=== PATIENT | female | born 1980 | race Two or more races ===

== ENCOUNTER 2017-06-19 18:47 | Emergency (ER) | payer MEDICAID ==
[2017-06-19] MEDS ORDERED: PENICILLIN V POTASSIUM 500 MG TABLET PO ONE (20:03)
[2017-06-19] MEDS ORDERED: BENZONATATE 100 MG CAPSULE PO ONE (20:04)
[2017-06-19] MEDS ORDERED: ACETAMINOPHEN 325 MG TABLET PO ONE (20:04)
[2017-06-19] MEDS ORDERED: IBUPROFEN 600 MG TABLET PO ONE (20:04)
--- NOTE | 2017-06-19 20:07 | ER Document Report ---
HPI - HPI Patient complains to provider of: lower left 1st molar Onset: Yesterday Onset/Duration: Persistent Quality of pain: Throbbing Pain Level: 4 Context: 36 yo female c/o increased pain lower left 1st molar which is decayed to the pulp, pt states it is more swollen after she ripped a piece of skin off the other day. Associated Symptoms: None Exacerbated by: Denies Relieved by: Denies Similar symptoms previously: No Recently seen / treated by doctor: No - ROS ROS below otherwise negative: Yes Systems Reviewed and Negative: Yes All other systems reviewed and negative - DERM Skin Color: Normal Past Medical History - General Information source: Patient - Social History Smoking Status: Current Every Day Smoker Frequency of alcohol use: None Drug Abuse: None Lives with: Family Family History: Reviewed & Not Pertinent Patient has suicidal ideation: No Patient has homicidal ideation: No - Medical History Medical History: Negative Renal/ Medical History: Denies: Hx Peritoneal Dialysis Surgical Hx: Negative Vertical Provider Document - CONSTITUTIONAL Agree With Documented VS: Yes Exam Limitations: No Limitations General Appearance: No Apparent Distress - INFECTION CONTROL TRAVEL OUTSIDE OF THE [place] IN LAST 30 DAYS: No - HEENT Notes: decayed 1st molar lower left with pointed small abscess that is tender, not draining - NECK Neck: Supple. negative: Lymphadenopathy-Left, Lymphadenopathy-Right - RESPIRATORY Respiratory: Breath Sounds Normal, No Respiratory Distress O2 Sat by Pulse Oximetry: 99 - CARDIOVASCULAR Cardiovascular: Regular Rate, Regular Rhythm - NEURO Level of Consciousness: Awake, Alert Course - Vital Signs Vital signs: Temp Pulse Resp BP Pulse Ox 98.6 F 68 20 164/103 H 99 06/19/17 19:07 06/19/17 19:07 06/19/17 19:07 06/19/17 19:07 06/19/17 19:07 Discharge - Discharge Clinical Impression: Dental abscess Condition: Good Disposition: HOME, SELF-CARE Instructions: Acetaminophen, [facility], Dentist, Ibuprofen ( General) ([facility]), Penicillin V K ([facility]), Toothache ([facility]) Additional Instructions: warm compress see the dentist to er if increased swelling pain fever Please complete the patient satisfaction survey if you get one, and return it.. If you do not receive a survey, then you can go to the [facility] website, [email or web address] and place your comments about your very good care. Thank you very much. It was a pleasure being your medical provider today. Prescriptions: Ibuprofen [Motrin 600 mg Tablet] 600 mg PO Q8HP PRN #30 tablet PRN Reason: Penicillin V Potassium [Penicillin Vk 500 mg Tablet] 500 mg PO QID #40 tablet Forms: Return to Work
[2017-06-19 20:31] VITALS: BP 160/90
== END 2017-06-19 20:47 | disposition home or self-care (01) ==
LOC: ER 18:47
DX: K04.7 Periapical abscess without sinus (principal); F17.200 Nicotine dependence, unspecified, uncomplicated
CPT/HCPCS: 99282; J3490 ×4

== ENCOUNTER 2017-06-30 22:24 | Emergency (ER) | payer MEDICAID ==
[2017-06-30] MEDS ORDERED: CLINDAMYCIN HCL 150 MG CAPSULE PO ONE (23:41)
[2017-06-30] MEDS ORDERED: OXYCODONE-ACETAMINOPHEN 5-325 MG TABLET PO ONE (23:41)
[2017-06-30] MEDS ORDERED: HYDROCODONE/ACETAMINOPHEN 5-325 MG 6 TAB/DSPK PO PRN (23:41)
[2017-06-30] MEDS ORDERED: ONDANSETRON 4 MG TAB.RAPDIS PO ONE (23:41)
--- NOTE | 2017-06-30 23:48 | ER Document Report ---
HPI - HPI Patient complains to provider of: Dental pain Pain Level: 5 Context: Patient is a 36-year-old female comes emergency department for chief complaint of dental pain, she states pain has been worsening over the past 2 days, she states she minimally improved after being placed on penicillin about a week ago , she states she has had same trouble in the past and has had limited results with penicillin. She denies fever, swelling of the neck, difficulty swallowing. She tried to get into the dentist but they would not take her because she will soon have insurance per patient. Past Medical History - General Information source: Patient - Social History Smoking Status: Never Smoker Drug Abuse: None Lives with: Family Family History: Reviewed & Not Pertinent - Medical History Medical History: Negative Renal/ Medical History: Denies: Hx Peritoneal Dialysis Surgical Hx: Negative - Immunizations Immunizations up to date: Yes Hx Diphtheria, Pertussis, Tetanus Vaccination: Yes Vertical Provider Document - CONSTITUTIONAL General Appearance: WD/WN, Mild Distress - INFECTION CONTROL TRAVEL OUTSIDE OF THE [place] IN LAST 30 DAYS: No - HEENT HEENT: Atraumatic, Normocephalic Mouth Diagram: 1 - Dental caries with mild surrounding gingival inflammation, no drainable abscess noted 2 - Dental caries with mild surrounding gingival inflammation, no drainable abscess noted - NECK Neck: Normal Inspection - RESPIRATORY Respiratory: Breath Sounds Normal, No Respiratory Distress O2 Sat by Pulse Oximetry: 99 - CARDIOVASCULAR Cardiovascular: Regular Rate, Regular Rhythm - GI/ABDOMEN Gastrointestinal: Abdomen Soft, Abdomen Non-Tender - MUSCULOSKELETAL/EXTREMETIES Musculoskeletal/Extremeties: MAEW, FROM, Non-Tender - NEURO Level of Consciousness: Awake, Alert, Appropriate - DERM Integumentary: Warm, Dry, No Rash Course - Re-evaluation Re-evalutation: Patient appears to have dental infection in 2 different locations, one on each side of the mouth. No dental abscesses noted. No swelling of the neck, submandibular tissues, no significant swelling of the face. Patient will be treated with clindamycin instead of penicillin, provided with symptom relief here, patient states that she will be following up soon with the dentist. Discussed return precautions. Patient states understanding and agreement. - Vital Signs Vital signs: Temp Pulse Resp BP Pulse Ox 98.1 F 65 16 172/82 H 99 06/30/17 23:00 06/30/17 23:00 06/30/17 23:00 06/30/17 23:00 06/30/17 23:00 Discharge - Discharge Clinical Impression: Pain, dental Condition: Stable Disposition: HOME, SELF-CARE Additional Instructions: Take the clindamycin as prescribed instead of the penicillin. Follow-up with the dentist for this will continue to occur. Continue ibuprofen, take the provided medication if needed. Return to the emergency department if you worsen including increased swelling, difficulty swallowing, swelling of the neck, or any other concerning symptoms. Prescriptions: Clindamycin HCl [Cleocin 150 mg Capsule] 150 mg PO Q6 #56 capsule
[2017-07-01 00:46] VITALS: BP 175/95
== END 2017-07-01 00:46 | disposition home or self-care (01) ==
LOC: ER 22:24
DX: K08.89 Other specified disorders of teeth and supporting structures (principal)
CPT/HCPCS: 99282; J3490; S0119

== ENCOUNTER 2017-08-10 20:28 | Emergency (ER) | payer MEDICAID ==
[2017-08-10 20:40] VITALS: BP 159/100
[2017-08-10] MEDS ORDERED: ACETAMINOPHEN 325 MG TABLET PO ONE (21:24)
--- NOTE | 2017-08-10 21:25 | ER Document Report ---
HPI - HPI Patient complains to provider of: laceration Pain Level: 4 Context: Patient is a 37-year-old female presents emergency department with a laceration on the palmar surface of her left hand. Patient states that she was trying to cut something when the knife slipped onto her palm. Tetanus is up-to-date. Denies any numbness or tingling of her hand full range of motion in all her digits admits to pain and did not take anything prior to arrival. Otherwise healthy female Past Medical History - Social History Smoking Status: Unknown if Ever Smoked Family History: Reviewed & Not Pertinent Patient has suicidal ideation: No Patient has homicidal ideation: No Renal/ Medical History: Denies: Hx Peritoneal Dialysis - Immunizations Immunizations up to date: Yes Hx Diphtheria, Pertussis, Tetanus Vaccination: Yes Vertical Provider Document - CONSTITUTIONAL Agree With Documented VS: Yes Notes: PHYSICAL EXAM GENERAL: Alert, interacts well. HEAD: Normocephalic, atraumatic. EXTREMITIES: Moves all 4 extremities spontaneously. No edema, radial pulses 2/ 4 bilaterally. No cyanosis. Capillary refill less than 2 seconds in all upper extremity digits NEUROLOGICAL: Alert and oriented x4. Normal speech. PSYCH: Normal affect, normal mood. SKIN: Warm, dry, normal turgor. 1 cm laceration on the palmar surface of the left hand, wound edges well approximated with minimal subcutaneous fat involvement. - INFECTION CONTROL TRAVEL OUTSIDE OF THE [place] IN LAST 30 DAYS: No - RESPIRATORY O2 Sat by Pulse Oximetry: 100 Course - Re-evaluation Re-evalutation: 08/10/17 21:30 Patient is a 37-year-old female who presents emergency department for laceration on her hand. Wound is irrigated with Betadine and saline. Given the location and wound edges already well approximated was dressed with Steri- Strips and a dry sterile dressing. Patient educated on wound care and to follow -up with primary care. Patient is stable for discharge home. - Vital Signs Vital signs: Temp Pulse Resp BP Pulse Ox 98.1 F 70 18 159/100 H 100 08/10/17 20:38 08/10/17 20:38 08/10/17 20:38 08/10/17 20:38 08/10/17 20:38 Discharge - Discharge Clinical Impression: Laceration Condition: Good Disposition: HOME, SELF-CARE Additional Instructions: NON-SUTURED LACERATION: Your laceration did not require suturing. Some lacerations cannot be sutured because of increased infection risk, while others simply don't need stitches because they are shallow or very short. Your injury should be protected while it heals. Usually complete healing takes 10 to 14 days. Keep the dressing clean and dry, and change it every day. If you notice increasing pain, redness, swelling, drainage, or tender lumps in the armpit or groin above the injury, infection may be present. You should call the doctor at once. SOAP CLEANSING: Gently wash the wound daily using a mild soap (like Ivory, Phisoderm, Neutrogena). Use warm water, rubbing gently until all debris, ooze, and crusting have been washed from the wound. Allow to dry briefly (about 10 minutes) after cleaning. Repeat this cleansing at least three times a day for the first two days and then once or twice a day. FOLLOW-UP CARE: If you have been referred to another physician for follow-up care, call that physicians office for an appointment as you were instructed. If you experience a significant change in your laceration, or if you are concerned there may be an infection (swelling, redness, drainage, increasing tenderness, red streaks, tender lumps in the armpit or groin above the laceration, or fever) , return to the Emergency Department immediately re-evaluation.
== END 2017-08-10 21:34 | disposition home or self-care (01) ==
LOC: ER 20:28
DX: S61.412A Laceration without foreign body of left hand, initial encounter (principal); W26.0XXA Contact with knife, initial encounter; Y93.G1 Activity, food preparation and clean up
CPT/HCPCS: 99282; 12001; J3490

== ENCOUNTER 2017-12-21 11:52 | Emergency (ER) | payer MEDICAID ==
[2017-12-21 12:06] VITALS: BP 113/57
[2017-12-21 13:29] LABS: APPEARANCE,URINE CLOUDY; BILIRUBIN,URINE NEGATIVE (NEGATIVE); COLOR,URINE AMBER; GLUCOSE, URINE NEGATIVE (NEGATIVE); KETONES,URINE NEGATIVE (NEGATIVE); LEUKOCYTE ESTERASE,URINE SMALL (NEGATIVE); NITRITE,URINE POSITIVE (NEGATIVE); PROTEIN,URINE >=500 mg/dL (NEGATIVE); URINE SPECIFIC GRAVITY 1.022
[2017-12-21] MEDS ORDERED: AZITHROMYCIN 250 MG TABLET PO ONE (13:39)
[2017-12-21] MEDS ORDERED: LIDOCAINE 1% INJ-PF (10 MG/ML) 30 ML SDV INJ ONE (13:39)
[2017-12-21] MEDS ORDERED: CEFTRIAXONE INJ 1000 MG VIAL IM ONE (13:39)
[2017-12-21 13:49] LABS: BACTERIA (WET MOUNT) 4+ BACTERIA SEEN; EPITHELIALS (WET MOUNT) 3+ EPITHELIALS SEEN; T.VAGINALIS (WET MOUNT) NO TRICHOMONAS SEEN; WBCS (WET MOUNT) 2+ WBCS SEEN; YEAST (WET MOUNT) NO YEAST SEEN
--- NOTE | 2017-12-21 14:16 | ER Document Report ---
ED Neck/Back Problem - General Chief Complaint: Back Pain Stated Complaint: BACK PAIN Time Seen by Provider: 12/21/17 12:26 Mode of Arrival: Ambulatory Information source: Patient Notes: 37-year-old female presents to ED for complaint of back pain that started yesterday and continue radiating through her right buttocks and down her leg. She denies any injury. She does have frequency and urgency with urination. Last menstrual period was October 10. She denies any signs or symptoms of cauda equina, denies saddle anesthesia, loss of control of bowel bladder, loss of muscle control or sensation to lower extremities. She is able to walk with a even steady gait pupils equal and react to light and answers questions appropriately. She states she is worried she is . TRAVEL OUTSIDE OF THE [place] IN LAST 30 DAYS: No - HPI Patient complains to provider of: Pain, Lower back. No: Injury Onset: Yesterday Where: Home Onset: Gradual Timing: Worse Quality of pain: Pressure, Sharp, Throbbing Severity: Moderate Pain Level: 4 Context: Bending, Lifting, Turning Recent injury: No Associated symptoms: Like prior neck/back pain, Radiation to leg, Lower back pain, Other - With urinary urgency and frequency. denies: Numbness/tingling, Unable to urinate Exacerbated by: Movement of trunk, Sitting position Relieved by: Nothing Similar symptoms previously: Yes Recently seen / treated by doctor: No - Related Data Allergies/Adverse Reactions: No Known Allergies Allergy (Verified 12/21/17 11:57) Past Medical History - General Information source: Patient - Social History Smoking Status: Never Smoker Cigarette use (# per day): No Chew tobacco use (# tins/day): No Smoking Education Provided: No Lives with: Family Family History: Reviewed & Not Pertinent Patient has suicidal ideation: No Patient has homicidal ideation: No - Past Medical History Cardiac Medical History: Reports: Other - 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 Pulmonary Medical History: Reports: Hx Asthma EENT Medical History: Reports: None Neurological Medical History: Reports: Hx Seizures Endocrine Medical History: Reports: None Renal/ Medical History: Reports: None Malignancy Medical History: Reports: None GI Medical History: Reports: None Musculoskeltal Medical History: Reports Hx Arthritis, Reports Hx Musculoskeletal Deformity Skin Medical History: Reports None Psychiatric Medical History: Reports: None Traumatic Medical History: Reports: None Infectious Medical History: Reports: None Past Surgical History: Reports: Hx Open Heart Surgery - Immunizations Immunizations up to date: Yes Hx Diphtheria, Pertussis, Tetanus Vaccination: Yes Review of Systems - Review of Systems Constitutional: No symptoms reported EENT: No symptoms reported Cardiovascular: No symptoms reported Respiratory: No symptoms reported Gastrointestinal: No symptoms reported Genitourinary: Frequency, Urgency Female Genitourinary: Last menstrual period - October 10, 2017 Musculoskeletal: Back pain, Muscle stiffness Skin: No symptoms reported Hematologic/Lymphatic: No symptoms reported Neurological/Psychological: No symptoms reported -: Yes All other systems reviewed and negative Physical Exam - Vital signs Vitals: Temp Pulse Resp BP Pulse Ox 98.5 F 92 16 113/57 L 98 12/21/17 12:05 12/21/17 12:05 12/21/17 12:05 12/21/17 12:05 12/21/17 12:05 Interpretation: Normal - General General appearance: Appears well, Alert - HEENT Head: Normocephalic, Atraumatic Eyes: Normal Pupils: PERRL - Respiratory Respiratory status: No respiratory distress Chest status: Nontender Breath sounds: Normal Chest palpation: Normal - Cardiovascular Rhythm: Regular Heart sounds: Normal auscultation Murmur: No - Abdominal Inspection: Normal Distension: No distension Bowel sounds: Normal Tenderness: Nontender Organomegaly: No organomegaly - Back Back: Normal, Tender - Bilateral lower back, CVA tenderness - Bilateral. No: Deformity/step-off, Vertebra tenderness, Scars, Scoliosis, Wounds - Extremities General upper extremity: Normal inspection, Nontender, Normal color, Normal ROM , Normal temperature General lower extremity: Normal inspection, Nontender, Normal color, Normal ROM , Normal temperature, Normal weight bearing. No: Karen's sign - Neurological Neuro grossly intact: Yes Cognition: Normal Orientation: AAOx4 Spring Coma Scale Eye Opening: Spontaneous Clair Coma Scale Verbal: Oriented Spring Coma Scale Motor: Obeys Commands Spring Coma Scale Total: 15 Speech: Normal Motor strength normal: LUE, RUE, LLE, RLE Sensory: Normal - Psychological Associated symptoms: Normal affect, Normal mood - Skin Skin Temperature: Warm Skin Moisture: Dry Skin Color: Normal Course - Re-evaluation Re-evalutation: 12/21/17 22:49 Patient presented to ED for complaint of low back pain bilaterally with frequency and urgency with urination. She states her last menstrual period was October 10, 2017. Urine was positive for and UTI. Swabs were sent for GC and chlamydia patient was treated with a gram of Rocephin IM as well as azithromycin to cover possible STD. Patient was also discharged home with a prescription for Keflex and instructed to follow-up with [facility] and primary MD. Patient was able to verbalize understanding of instructions and verbalized agreement with treatment plan. - Vital Signs Vital signs: Temp Pulse Resp BP Pulse Ox 98.5 F 92 16 113/57 L 98 12/21/17 12:05 12/21/17 12:05 12/21/17 12:05 12/21/17 12:05 12/21/17 12:05 - Laboratory Laboratory results interpreted by me: 12/21/17 12:39 Urine Protein >=500 H Urine Blood LARGE H Urine Nitrite POSITIVE H Urine Urobilinogen 2.0 H Ur Leukocyte Esterase SMALL H Urine HCG, Qual POSITIVE H Discharge - Discharge Clinical Impression: UTI (urinary tract infection) Qualifiers: Urinary tract infection type: site unspecified Hematuria presence: with hematuria Qualified Code(s): N39.0 - Urinary tract infection, site not specified Low back pain Qualifiers: Chronicity: unspecified Back pain laterality: bilateral Sciatica presence: with sciatica Sciatica laterality: sciatica laterality unspecified Qualified Code(s): M54.40 - Lumbago with sciatica, unspecified side Qualifiers: Weeks of gestation: less than 8 weeks Qualified Code(s): Z3A.01 - Less than 8 weeks gestation of Disposition: HOME, SELF-CARE Instructions: Family Physicians / Practices, [facility] Additional Instructions: URINARY TRACT INFECTION: Your evaluation indicates that you have a urinary tract infection. This is due to germs growing in the bladder. This is a common problem. This infection usually responds quickly to antibiotics. Your antibiotic should be taken exactly as prescribed. Drink plenty of fluids -- three to four quarts a day. Occasionally, a bladder anesthetic will be prescribed to help stop the feeling of urgency until the antibiotic has a chance to clear the infection. This may cause your urine to be dark orange. Certain urine infections require a culture. If the doctor obtained a culture, the results will be back in two days. You should call to see if a change in treatment is needed. A repeat urinalysis after you finish treatment is often recommended. The physician will let you know if further testing is required. Call the doctor if you develop fever, chills, flank pain, inability to urinate, or blood in the urine. CEPHALEXIN: The antibiotic you've been prescribed is a member of the cephalosporin class. This type of antibiotic covers a wide variety of infections, including those of the skin, lungs, and urinary tract. It's useful for staph infections. This antibiotic is slightly similar to the penicillin family. In rare cases , a person who is allergic to penicillin will also be allergic to this medication. If you have had a severe allergic reaction to penicillin, and have not taken this antibiotic since that time, notify your doctor. Antibiotics which cover many germs ("broad spectrum" antibiotics) are more likely to cause diarrhea or "yeast" infections. Women prone to vaginal yeast problems may suffer an attack after taking this antibiotic. In infants, oral thrush (white spots "stuck" on the cheek) or yeast diaper rash may result. See your doctor if these problems occur. Call at once if you develop itching, hives , shortness of breath, or lightheadedness. Rocephin You have been given an injection of an antibiotic called Rocephin ( ceftriaxone). Sometimes the injection must be combined with antibiotic pills. For some infections, such as an uncomplicated ear infection, Rocephin provides all the antibiotic that's needed. The antibiotic will be in your body for about two days. For serious infections, we usually repeat doses of Rocephin daily. Side effects are very unusual following a shot. Women may develop vaginal yeast infections, and babies can get yeast (thrush) in the mouth following the use of antibiotics. Contact your physician if you have symptoms with this medication. Allergy to this antibiotic can result in hives, wheezing, faintness, or itching. If symptoms of allergy occur, call the doctor at once. Azithromycin Azithromycin (Zithromax) is a broad spectrum antibiotic in the same class as erythromycin. It can treat a variety of bacterial infections, but is most frequently used for respiratory infections. Azithromycin is extremely long-lasting. It accumulates in body tissues and continues to kill bacteria for many days. In order to improve absorption, Azithromycin should be taken at least one hour before or two hours after a meal. It does not have the same strong tendency to upset the stomach as erythromycin and is usually very well tolerated. Patients who have had a rash or other true allergic reactions to erythromycin should not take this medication. Call if you develop gastrointestinal distress, severe diarrhea, rash, hives, itching, or shortness of breath. FOLLOW-UP CARE: If you have been referred to a physician for follow-up care, call the physician s office for an appointment as you were instructed or within the next two days. If you experience worsening or a significant change in your symptoms, notify the physician immediately or return to the Emergency Department at any time for re-evaluation. Prescriptions: Cephalexin Monohydrate [Keflex 500 mg Capsule] 500 mg PO Q6H 10 Days capsule Referrals: [facility] [Provider Group] - Follow up as needed
[2017-12-21 15:17] LABS: CHLAM PCR NOT DETECTED (NOT DETECT); GON PCR NOT DETECTED (NOT DETECT)
== END 2017-12-21 14:18 | disposition home or self-care (01) ==
LOC: ER 11:52
DX: O23.41 Unspecified infection of urinary tract in pregnancy, first trimester (principal); O99.89 Other specified diseases and conditions complicating pregnancy, childbirth and the puerperium; M54.40 Lumbago with sciatica, unspecified side; Z3A.01 Less than 8 weeks gestation of pregnancy
CPT/HCPCS: 99283; 87210; 81025; 81001; 87491; 87591; Q0144; J3490; J0696

== ENCOUNTER 2018-05-14 21:47 | Emergency (ER) | payer MEDICAID ==
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
[2018-05-14 22:59] LABS: ABSOLUTE EOSINOPHILS # (AUTO) 0.1 10^3/uL (0.0-0.6); ABSOLUTE LYMPHOCYTES (AUTO) 1.8 10^3/uL (0.5-4.7); ABSOLUTE MONOCYTES (AUTO) 0.9 10^3/uL (0.1-1.4); ABSOLUTE NEUT (AUTO) 9.1 10^3/uL (1.7-8.2); BASOPHILS % (AUTO) 0.2 % (0-2); EOSINOPHILS % (AUTO) 0.7 % (0-6); HEMATOCRIT 28.1 % (36.0-47.0); HEMOGLOBIN 10.1 g/dL (12.0-15.5); MEAN CORPUSCULAR HEMOGLOBIN 32.9 pg (27.0-33.4); MEAN CORPUSCULAR HGB CONC 35.8 g/dL (32.0-36.0); MEAN CORPUSCULAR VOLUME 92 fl (80-97); MONOCYTES % (AUTO) 7.3 % (3-13); PLATELET COUNT 195 10^3/uL (150-450); RED BLOOD COUNT 3.06 10^6/uL (3.72-5.28); SEGMENTED NEUTROPHILS % (AUTO) 76.8 % (42-78); TOTAL CELLS COUNTED % (AUTO) 100 %; WHITE BLOOD COUNT 11.9 10^3/uL (4.0-10.5)
[2018-05-14 23:16] LABS: ALANINE AMINOTRANSFERASE 24 U/L (9-52); ALBUMIN 3.1 g/dL (3.5-5.0); ALKALINE PHOSPHATASE 90 U/L (38-126); ANION GAP 7 (5-19); ASPARTATE AMINO TRANSFERASE 16 U/L (14-36); BILIRUBIN,DIRECT 0.3 mg/dL (0.0-0.4); BILIRUBIN,TOTAL 0.6 mg/dL (0.2-1.3); BLOOD UREA NITROGEN 14 mg/dL (7-20); CALCIUM 8.7 mg/dL (8.4-10.2); CARBON DIOXIDE 22 mmol/L (22-30); CHLORIDE 109 mmol/L (98-107); GLUCOSE 79 mg/dL (75-110); LIPASE 190.5 U/L (23-300); POTASSIUM 3.9 mmol/L (3.6-5.0); SODIUM 138.4 mmol/L (137-145)
[2018-05-15 00:08] VITALS: BP 134/83
== END 2018-05-15 | disposition home or self-care (01) ==
LOC: ER 21:47
DX: O26.893 Other specified pregnancy related conditions, third trimester (principal); R10.31 Right lower quadrant pain; R10.32 Left lower quadrant pain; O36.8130 Decreased fetal movements, third trimester, not applicable or unspecified; O99.513 Diseases of the respiratory system complicating pregnancy, third trimester; J45.909 Unspecified asthma, uncomplicated; O99.333 Smoking (tobacco) complicating pregnancy, third trimester; Z3A.28 28 weeks gestation of pregnancy
CPT/HCPCS: 36415; 80053; 83690; 85025; 99284

== ENCOUNTER 2018-07-07 12:28 | Inpatient (IN) | payer MEDICAID ==
[2018-07-07] MEDS ORDERED: RINGERS SOLUTION,LACTATED 1,000 ML IV PRN ×2 (12:37→13:51)
[2018-07-07] MEDS ORDERED: CEFAZOLIN 2 GM/D5W RTU 2 GM/50 ML RTUPB IV ONE ×2 (12:37→12:40)
[2018-07-07] MEDS ORDERED: CITRIC ACID/SODIUM CITRATE ORAL SOLN 15 ML UDCUP ONE (12:39)
[2018-07-07] MEDS ORDERED: EPHEDRINE SULFATE INJ 50 MG/1 ML AMPULE ONE (12:44)
[2018-07-07] MEDS ORDERED: ONDANSETRON HCL INJ/PF 4 MG/2 ML SDV ONE (12:44)
[2018-07-07] MEDS ORDERED: OXYTOCIN 10 UNIT/ML VIAL ONE (12:45)
[2018-07-07] MEDS ORDERED: FENTANYL CITRATE INJ/PF 100 MCG/2 ML AMPUL ONE ×2 (12:45→14:23)
[2018-07-07] MEDS ORDERED: MIDAZOLAM 2 MG/2 ML INJ ONE (12:45)
[2018-07-07] MEDS ORDERED: BUPIVACAINE HCL/DEX-WATER/PF 15 MG/2 ML AMPULE ONE (12:46)
--- NOTE | 2018-07-07 13:00 | Admission Physical ---
Datetime Report Generated by CPN: 07/07/2018 13:00 CURRENT ADMISSION Chief Complaint: Uterine Contractions Indication for Induction: Not Applicable Admit Impression : Active Labor Admit Plan: Admit to Unit; Initiate Section Protocol Admit Plan- Other: Breech presentation verified by bedside U/S per Dr. 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 [id number] Advised to Stop: Yes Cigarette Comments: 1/2 pack a day MEDICAL HISTORY Pulmonary Disease (Asthma, TB): Yes Neuro/Epilepsy: Yes PHYSICAL EXAM General: Normal HEENT: Deferred Neurologic: Normal Thyroid: Deferred Heart: Normal Lungs: Normal Breast: Deferred Back: Deferred Abdomen: Normal Genitourinary Exam: Normal Extremities: Normal DTRs: Deferred Pelvic Type: Adequate VAGINAL EXAM Dilatation: 5 Effacement: 80 Station: -2 MEMBRANES Membranes: Intact FETUS A EGA: 38.2 FHR- Baseline: 145 Variability: Moderate 6-25bpm Accelerations: 15X15 Decelerations: None Presentation: Breech Admit Comment: Prepped for Stat CS SROM during admit PLANS FOR LABOR AND DELIVERY Labor and Delivery: None Pain Management: Spinal INFORMED CONSENT Assignment: Darren Concepcion MD Signature: with User ID: [email or web address] : with User ID: [email or web address]
[2018-07-07 13:07] LABS: ABSOLUTE BASOPHILS # (AUTO) 0.1 10^3/uL (0.0-0.2); ABSOLUTE LYMPHOCYTES (AUTO) 1.6 10^3/uL (0.5-4.7); ABSOLUTE MONOCYTES (AUTO) 0.8 10^3/uL (0.1-1.4); ABSOLUTE NEUT (AUTO) 8.6 10^3/uL (1.7-8.2); BASOPHILS % (AUTO) 0.5 % (0-2); EOSINOPHILS % (AUTO) 0.1 % (0-6); HEMATOCRIT 32.7 % (36.0-47.0); HEMOGLOBIN 11.5 g/dL (12.0-15.5); LYMPHOCYTES % (AUTO) 14.4 % (13-45); MEAN CORPUSCULAR HEMOGLOBIN 31.8 pg (27.0-33.4); MEAN CORPUSCULAR HGB CONC 35.2 g/dL (32.0-36.0); MEAN CORPUSCULAR VOLUME 90 fl (80-97); MONOCYTES % (AUTO) 7.1 % (3-13); PLATELET COUNT 192 10^3/uL (150-450); RED BLOOD COUNT 3.62 10^6/uL (3.72-5.28); RED CELL DISTRIBUTION WIDTH 14.5 % (11.5-14.0); SEGMENTED NEUTROPHILS % (AUTO) 77.9 % (42-78); TOTAL CELLS COUNTED % (AUTO) 100 %; WHITE BLOOD COUNT 11.1 10^3/uL (4.0-10.5)
[2018-07-07] MEDS ORDERED: MORPHINE SULFATE 10 MG/ML INJ ONE ×2 (13:14→13:24)
[2018-07-07 13:22] LABS: APPEARANCE,URINE SLIGHTLY-CLOUDY; BILIRUBIN,URINE NEGATIVE (NEGATIVE); COLOR,URINE YELLOW; GLUCOSE, URINE NEGATIVE (NEGATIVE); KETONES,URINE 20 mg/dL (NEGATIVE); LEUKOCYTE ESTERASE,URINE SMALL (NEGATIVE); NITRITE,URINE NEGATIVE (NEGATIVE); PROTEIN,URINE 30 mg/dL (NEGATIVE); URINE SPECIFIC GRAVITY 1.015
[2018-07-07 13:38] LABS: URINE AMPHETAMINES SCREEN NEGATIVE; URINE BARBITURATES SCREEN NEGATIVE; URINE BENZODIAZEPINES SCREEN NEGATIVE; URINE COCAINE SCREEN NEGATIVE; URINE MARIJUANA (THC) SCREEN NEGATIVE; URINE METHADONE SCREEN NEGATIVE; URINE PHENCYCLIDINE SCREEN NEGATIVE
[2018-07-07] MEDS ORDERED: MEASLES,MUMPS&RUBELLA VACC/PF 0.5 ML VIAL SUBCUT PRN (13:51)
[2018-07-07] MEDS ORDERED: DIPH/PERTUSS(ACELL)/TETANUS VAC/PF 0.5 ML SYR (>=10YO) IM PRN (13:51)
[2018-07-07] MEDS ORDERED: ACETAMINOPHEN 100 ML IV PRN (13:51)
[2018-07-07] MEDS ORDERED: OXYCODONE-ACETAMINOPHEN 5-325 MG TABLET PO PRN (13:51)
[2018-07-07] MEDS ORDERED: ACETAMINOPHEN 325 MG TABLET PO PRN (13:51)
[2018-07-07] MEDS ORDERED: OXYTOCIN/NORMAL SALINE 20 UNIT/1,000 ML RTUINJ IV PRN (13:51)
[2018-07-07] MEDS ORDERED: SIMETHICONE 80 MG TAB.CHEW PO PRN (13:51)
[2018-07-07] MEDS ORDERED: HYDROMORPHONE HCL INJ/PF 2 MG/ML AMPULE IV PRN (13:51)
[2018-07-07] MEDS ORDERED: PROMETHAZINE HCL INJ 25 MG/1 ML VIAL IV PRN (13:51)
--- NOTE | 2018-07-07 13:59 | Operative Report ---
Operative Report DATE OF SURGERY: 07/07/18 PREOPERATIVE DIAGNOSIS: Breech in labor POSTOPERATIVE DIAGNOSIS: Same OPERATION: Primary via low transverse uterine incision SURGEON: FELICITA LEDESMA ANESTHESIA: GA TISSUE REMOVED OR ALTERED: Placenta COMPLICATIONS: None ESTIMATED BLOOD LOSS: 250 cc INTRAOPERATIVE FINDINGS: Viable male normal uterus tubes and ovaries PROCEDURE: Patient was taken to the OR and placed in supine position. She is prepared and draped in sterile fashion. Raymond was placed for drainage of the bladder. General anesthesia was induced because of the need to perform the surgery in a quick fashion. Low transverse incision was made and carried down the level of the fascia. The fascial incision was made with knife and extended bilaterally with curved Gaytan scissors. The fascia was off the rectus muscles using sharp and blunt dissection. The rectus muscles are in the midline. The peritoneum was entered without incident. Bladder blade was placed in uterine segment was identified. A low transverse incision was made creating a bladder flap. Bladder blade was placed low transverse uterine incision was made with the knife and extended with fingertips. The baby was delivered with the assistance of a vaginal hand and then fundal pressure. The baby was single footling breech position. Mouth and nose were suctioned free. The cord is doubly clamped and cut. Baby is passed off to the tie worker in attendance. The placenta was manually extracted with trailing membranes. The uterus was externalized wrapped in a moist lap sponge. Uterine contents wiped free. Uterus was closed with a running locking layer of 0 chromic suture using the second layer to imbricate the first completing a double layer closure of the uterus. The serosa was closed with a running 2-0 chromic stitch. The pelvis was irrigated and suctioned free of fluid the uterus was replaced in the abdomen. The abdominal wall peritoneum was closed with running 2-0 chromic stitch. Fascia was closed with a running 0 Vicryl in 2 segments. Brandt's layer was brought together with 0 plain gut stitch and the skin was closed with running subcuticular 4-0 undyed Vicryl stitch. The wound was dressed mother and baby did well.
[2018-07-07] MEDS ORDERED: ACETAMINOPHEN 1,000 MG/100 ML RTUPB IV ONE (14:00)
[2018-07-07] MEDS ORDERED: OXYTOCIN/NORMAL SALINE 20 UNIT/1,000 ML RTUINJ ONE (14:04)
[2018-07-07] MEDS ORDERED: PROMETHAZINE HCL INJ 25 MG/1 ML VIAL ONE (14:26)
[2018-07-07] MEDS ORDERED: KETOROLAC TROMETHAMINE INJ/PF 30 MG/1 ML SDV ONE (14:39)
[2018-07-07] MEDS: KETOROLAC TROMETHAMINE INJ/PF 30 MG/1 ML SDV IV SCH ×2 (14:53→22:33)
[2018-07-07] MEDS ORDERED: HYDROMORPHONE HCL INJ/PF 2 MG/ML AMPULE ONE (15:13)
[2018-07-07] MEDS: OXYCODONE-ACETAMINOPHEN 5-325 MG TABLET PO PRN ×2 (15:59→21:35)
[2018-07-07] MEDS ORDERED: OXYCODONE-ACETAMINOPHEN 5-325 MG TABLET ONE (15:59)
--- NOTE | 2018-07-07 16:52 | Delivery Summary ---
Del Sum A-C Datetime Report Generated by CPN: 07/07/2018 16:52 DELIVERY PERSONNEL DELIVERY PERSONNEL: [id number] Delivery Doctor:: Darren Concepcion MD Anesthesiologist:: Josue Flores MD INSIDE SALES PERSON:: Yogesh Layne CRNA Labor and Delivery Nurse:: Ortiz Tolbert RNco founder and chairman Nurse:: Millie Islas RN Wet Silk Hanger:: Anabelle Alejandra RN Candy Puller/ALMOND PAN FINISHER: Cinthia Sahu CST Candy Puller/ALMOND PAN FINISHER: Montserrat Ohara CST Additional Personnel: : Allegra Sosa RN MATERNAL INFORMATION Delivery Anesthesia: General Medications After Delivery: Pitocin Drip 20 Units/1000ml NSS Maternal Complications: None LABOR SUMMARY EDC: 07/19/2018 00:00 No. Babies in Womb: 1 LABOR INFORMATION Reason for Induction: Not Applicable Group B Beta Strep: Unknown MEMBRANES Membranes Rupture Method: Spontaneous Rupture of Membranes: 07/07/2018 12:47 Length of Rupture (hr): 0.38 Amniotic Fluid Color: Clear Amniotic Fluid Amount: Moderate Amniotic Fluid Odor: Normal STAGES OF LABOR Stage 3 hr: 0 Stage 3 min: 1 VAGINAL DELIVERY Episiotomy: None Laceration #1: None Laceration Extension #1: N/A Sponge Count Correct: N/A CSECTION DELIVERY Primary Indication: Breech Presentation Secondary Indication: N/A CSection Urgency: Emergency CSection Incidence: Primary Labor: Labor Elective: N/A CSection Incision: Lower Uterine Transverse BABY A INFORMATION Infant Delivery Date/Time: 07/07/2018 13:10 Method of Delivery: Born in Route : No : N/A Forceps: N/A Vacuum Extraction: N/A Shoulder Dystocia : No PRESENTATION/POSITION BABY A Presentation: Breech Cephalic Presentation: N/A Breech Presentation: Complete PLACENTA INFORMATION BABY A Placenta Delivery Time : 07/07/2018 13:11 Placenta Method of Delivery: Manual Removal Placenta Status: Delivered SCORES BABY A Heart Rate 1 min: >100 bpm Resp Effort 1 min: Good Cry Reflex Irritability 1 min: Cough or Sneeze or Pulls Away Muscle Tone 1 min: Active Motion Color 1 min: Body [place], Extremities Blue Resuscitation Effort 1 min: Tactile Stimulation SCORE 1 MIN: 9 Heart Rate 5 min: >100 bpm Resp Effort 5 min: Good Cry Reflex Irritability 5 min: Cough or Sneeze or Pulls Away Muscle Tone 5 min: Active Motion Color 5 min: Body [place], Extremities Blue Resuscitation Effort 5 min: Tactile Stimulation SCORE 5 MIN: 9 INFANT INFORMATION BABY A Gestational Age at Delivery: 38.2 Gestational Status: Early Term- 37- 38.6 Weeks Infant Outcome : Liveborn Condition : Stable Infant Sex: Male IDENTIFICATION BABY A Infant Verification Date/Time: 07/07/2018 13:14 ID Band Number: [id number] Mother's Name Verified: Yes RN Verifying : Irina, RN Additional Verifying Personnel: Quinten, RN WEIGHT/LENGTH BABY A Birthweight (gm): 2950 Weight (lb): 6 Infant Weight (oz): 8 Infant Length (in): 19.00 Length (cm): 48.26 CORD INFORMATION BABY A No. Cord Vessels: 3 Nuchal Cord : N/A ASSESSMENT BABY A Skin to Skin: No SIGNATURES : I was personally available for consultation and serving as supervising physician for the MLP.
[2018-07-07] MEDS: DOCUSATE SODIUM 100 MG CAPSULE PO SCH (19:26)
[2018-07-07] MEDS: DIPHENHYDRAMINE HCL 50 MG CAPSULE PO PRN (21:36)
[2018-07-08] MEDS: OXYCODONE-ACETAMINOPHEN 5-325 MG TABLET PO PRN ×5 (02:55→20:13)
[2018-07-08] MEDS: DIPHENHYDRAMINE HCL 50 MG CAPSULE PO PRN ×2 (03:04→20:13)
[2018-07-08] MEDS: KETOROLAC TROMETHAMINE INJ/PF 30 MG/1 ML SDV IV SCH (06:58)
[2018-07-08 07:03] LABS: MEAN CORPUSCULAR HEMOGLOBIN 31.7 pg (27.0-33.4); MEAN CORPUSCULAR HGB CONC 35.1 g/dL (32.0-36.0); MEAN CORPUSCULAR VOLUME 90 fl (80-97); PLATELET COUNT 172 10^3/uL (150-450); RED BLOOD COUNT 2.77 10^6/uL (3.72-5.28); RED CELL DISTRIBUTION WIDTH 14.2 % (11.5-14.0); WHITE BLOOD COUNT 17.4 10^3/uL (4.0-10.5)
[2018-07-08 07:30] LABS: HEMOGLOBIN 8.8 g/dL (12.0-15.5)
[2018-07-08] MEDS: PRENATAL VITAMIN W DHA CAPSULE PO SCH (09:37)
[2018-07-08] MEDS: DOCUSATE SODIUM 100 MG CAPSULE PO SCH ×2 (09:37→17:35)
--- NOTE | 2018-07-08 10:53 | PDOC PROGRESS REPORT ---
Subjective-OB Progress Note for:: 07/08/18 Subjective: reports bleeding slowing, pain controlled with current meds, denies needs, + passing gas Physical Exam (OB) Vital Signs: Temp Pulse Resp BP Pulse Ox 97.4 F 73 15 139/84 H 99 07/08/18 07:21 07/08/18 07:21 07/08/18 07:21 07/08/18 07:21 07/08/18 07:21 Intake & Output 07/07/18 07/08/18 07/09/18 06:59 06:59 06:59 Intake Total 1100 Output Total 400 Balance 700 Weight 56 kg - PIH/Pre-Eclampsia Clonus: Negative Headache: Absent Epigastric Pain: No Visual Changes: No - Dressing Removed: No - opsite dressing noted to abdomen Incision: Dressing, Well Approximated - not well approximated, requested RN to change op site when pain is minimal - Abdomen Description: Tender, Soft, Round Hernia Present: No Fundal Description: Firm, Midline Fundal Height: u/u - u/2 - Abdominal Distension: No distension - Extremities Lower extremities: Karen's sign - neg Calf: Normal, Nontender Objective-Diagnostic Laboratory: 07/08/18 06:25 07/07/18 07/07/18 07/07/18 12:41 12:53 12:53 WBC 11.1 H RBC 3.62 L Hgb 11.5 L Hct 32.7 L MCV 90 MCH 31.8 MCHC 35.2 RDW 14.5 H Plt Count 192 Seg Neutrophils % 77.9 Lymphocytes % 14.4 Monocytes % 7.1 Eosinophils % 0.1 Basophils % 0.5 Absolute Neutrophils 8.6 H Absolute Lymphocytes 1.6 Absolute Monocytes 0.8 Absolute Eosinophils 0.0 Absolute Basophils 0.1 Urine Color YELLOW Urine Appearance SLIGHTLY-CLOUDY Urine pH 7.0 Ur Specific [place] 1.015 Urine Protein 30 H Urine Glucose (UA) NEGATIVE Urine Ketones 20 H Urine Blood MODERATE H Urine Nitrite NEGATIVE Ur Leukocyte Esterase SMALL H Urine WBC (Auto) 15 Urine RBC (Auto) 8 Blood Type O POSITIVE Antibody Screen NEGATIVE 07/08/18 06:25 WBC 17.4 H RBC 2.77 L Hgb 8.8 L D Hct 25.0 L MCV 90 MCH 31.7 MCHC 35.1 RDW 14.2 H Plt Count 172 Seg Neutrophils % Lymphocytes % Monocytes % Eosinophils % Basophils % Absolute Neutrophils Absolute Lymphocytes Absolute Monocytes Absolute Eosinophils Absolute Basophils Urine Color Urine Appearance Urine pH Ur Specific [place] Urine Protein Urine Glucose (UA) Urine Ketones Urine Blood Urine Nitrite Ur Leukocyte Esterase Urine WBC (Auto) Urine RBC (Auto) Blood Type Antibody Screen Assessment and Plan(PN) - Assessment and Plan (1) Breech presentation delivered Is this a current diagnosis for this admission?: Yes (2) delivery delivered Is this a current diagnosis for this admission?: Yes - Time Spent with Patient Time with patient: Less than 15 minutes Medications reviewed and adjusted accordingly: Yes - Disposition Anticipated Discharge: Home Within: within 24 hours
[2018-07-08] MEDS ORDERED: KETOROLAC TROMETHAMINE INJ/PF 30 MG/1 ML SDV IV SCH (11:00)
[2018-07-08] MEDS: IBUPROFEN 800 MG TABLET PO SCH ×2 (12:53→17:35)
[2018-07-09] MEDS: OXYCODONE-ACETAMINOPHEN 5-325 MG TABLET PO PRN ×2 (02:57→09:29)
[2018-07-09] MEDS: IBUPROFEN 800 MG TABLET PO SCH ×3 (03:03→12:53)
[2018-07-09] MEDS: PRENATAL VITAMIN W DHA CAPSULE PO SCH (09:29)
[2018-07-09] MEDS: DOCUSATE SODIUM 100 MG CAPSULE PO SCH (09:30)
--- NOTE | 2018-07-09 09:37 | PDOC PROGRESS REPORT ---
Subjective-OB Progress Note for:: 07/09/18 Subjective: Ready to go home. Physical Exam (OB) Vital Signs: Temp Pulse Resp BP Pulse Ox 98.1 F 64 16 132/74 H 97 07/09/18 08:19 07/09/18 08:19 07/09/18 08:19 07/09/18 08:19 07/09/18 08:19 Intake & Output 07/08/18 07/09/18 07/10/18 06:59 06:59 06:59 Intake Total 1100 1450 Output Total 400 Balance 700 1450 Weight 56 kg - PIH/Pre-Eclampsia Clonus: Negative Headache: Absent Epigastric Pain: No Visual Changes: No - Dressing Removed: No - opsite Incision: Dressing - Bilateral Tubal Ligation Dressing Removed: No Site: Well Approximated - Lochia Lochia Amount: Scant < 10 ml Lochia Color: Rubra/Red - Abdomen Description: Tender, Soft, Round Hernia Present: No Bowel Sounds: Normoactive Flatus Presence: Present Stool: Yes Fundal Description: Firm, Midline Fundal Height: u/u - u/2 Objective-Diagnostic Laboratory: 07/08/18 06:25 Assessment and Plan(PN) - Time Spent with Patient Medications reviewed and adjusted accordingly: Yes - Disposition Anticipated Discharge: Home
--- NOTE | 2018-07-09 09:44 | PDOC DISCHARGE SUMMARY ---
Final Diagnosis Discharge Date: 07/09/18 - Final Diagnosis (1) AMA (advanced maternal age) multigravida 35+ Is this a current diagnosis for this admission?: Yes (2) Breech presentation delivered Is this a current diagnosis for this admission?: Yes (3) delivery delivered Is this a current diagnosis for this admission?: Yes (4) History of asthma Is this a current diagnosis for this admission?: Yes (5) Limited care Is this a current diagnosis for this admission?: Yes Discharge Data - Discharge Medication Prescriptions: Oxycodone HCl/Acetaminophen [Percocet 5-325 mg Tablet] 1 tab PO Q4HP PRN #20 tablet PRN Reason: Docusate Sodium [Colace 100 mg Capsule] 100 mg PO BID #30 capsule Ferrous Sulfate 325 mg PO BID #60 tablet. Ibuprofen [Motrin 800 mg Tablet] 800 mg PO Q6 #30 tablet Home Medications: No122/Iron/Folic Acid [ Multi Tablet] 1 each PO DAILY 07/07/18 Docusate Sodium [Colace 100 mg Capsule] 100 mg PO BID #30 capsule 07/09/18 Ferrous Sulfate 325 mg PO BID #60 tablet. 07/09/18 Ibuprofen [Motrin 800 mg Tablet] 800 mg PO Q6 #30 tablet 07/09/18 Oxycodone HCl/Acetaminophen [Percocet 5-325 mg Tablet] 1 tab PO Q4HP PRN #20 tablet 07/09/18 Gestational Age: 38.2 wks Reason(s) for Admission: Onset of Labor Procedures: Ultrasound Intrapartum Procedure(s): : Low Cervical, Transverse - Hughes Data Baby 1 Male at 1 minute: 9 at 5 minutes: 9 Weight: 2.948 kg Home with Mother: Yes Complications: No - Diagnosis Test Laboratory: Temp Pulse Resp BP Pulse Ox 98.1 F 64 16 132/74 H 97 07/09/18 08:19 07/09/18 08:19 07/09/18 08:19 07/09/18 08:19 07/09/18 08:19 07/07/18 07/07/18 07/08/18 12:41 12:53 06:25 RBC 3.62 L 2.77 L Hgb 11.5 L 8.8 L D Hct 32.7 L 25.0 L Urine Opiates Screen NEGATIVE - Discharge information/Instructions Discharge Activity: Activity As Tolerated, Balance Activity w/Rest, No Lifting Over 10 Pounds, No Lifting/Push/Pulling, Non-Ambulatory Child, Pelvic Rest, Slowly Increase Activity, No tub bath Discharge Diet: Regular Disposition: HOME, SELF-CARE Follow up with: [facility] in: 1, Weeks
[2018-07-09 11:31] LABS: HEMATOCRIT 25.8 % (36.0-47.0); HEMOGLOBIN 9.1 g/dL (12.0-15.5); MEAN CORPUSCULAR HEMOGLOBIN 32.5 pg (27.0-33.4); MEAN CORPUSCULAR HGB CONC 35.4 g/dL (32.0-36.0); MEAN CORPUSCULAR VOLUME 92 fl (80-97); PLATELET COUNT 203 10^3/uL (150-450); RED BLOOD COUNT 2.81 10^6/uL (3.72-5.28); WHITE BLOOD COUNT 13.2 10^3/uL (4.0-10.5)
[2018-07-09 12:54] VITALS: BP 148/58
== END 2018-07-09 14:00 | disposition home or self-care (01) | DRG 788 ==
LOC: LC 12:28 → LR 12:37 → 2S 16:30
PROVIDERS: ADMIT Obstetrics & Gynecology; ATTEND Obstetrics & Gynecology
PROC: 10D00Z1 Extraction of Products of Conception, Low, Open Approach (ICD-10-PCS; principal; 2018-07-07)
PROC: 4A1HXCZ Monitoring of Products of Conception, Cardiac Rate, External Approach (ICD-10-PCS; 2018-07-07)
DX: O32.8XX0 Maternal care for other malpresentation of fetus, not applicable or unspecified (principal); O99.52 Diseases of the respiratory system complicating childbirth; J45.909 Unspecified asthma, uncomplicated; O99.334 Smoking (tobacco) complicating childbirth; F17.210 Nicotine dependence, cigarettes, uncomplicated; Z37.0 Single live birth; Z3A.38 38 weeks gestation of pregnancy; I25.2 Old myocardial infarction
CPT/HCPCS: 1961; 36415; 80307; 81001; 85025; 85027; 86592; 86701; 86850; 86900; 86901; 94799; J0131; J0690; J1170; J1885; J2250; J2270; J2405; J2550; J2590; J3010; J3490

== ENCOUNTER 2018-08-18 08:22 | Day surgery (SDC) | payer MEDICAID ==
[2018-08-17 12:48] LABS: APPEARANCE,URINE SLIGHTLY-CLOUDY; BILIRUBIN,URINE NEGATIVE (NEGATIVE); COLOR,URINE YELLOW; GLUCOSE, URINE NEGATIVE (NEGATIVE); KETONES,URINE NEGATIVE (NEGATIVE); LEUKOCYTE ESTERASE,URINE TRACE (NEGATIVE); NITRITE,URINE POSITIVE (NEGATIVE); PROTEIN,URINE NEGATIVE (NEGATIVE); URINE SPECIFIC GRAVITY 1.009; UROBILINOGEN,URINE NEGATIVE mg/dL (<2.0)
--- NOTE | 2018-08-17 13:01 | EKG REPORT ---
SEVERITY:- ABNORMAL ECG - SINUS BRADYCARDIA LEFT VENTRICULAR HYPERTROPHY : Confirmed by: Aaron Chavis MD 17-Aug-2018 13:00:40
[2018-08-17 13:06] LABS: HEMATOCRIT 39.1 % (36.0-47.0); HEMOGLOBIN 13.1 g/dL (12.0-15.5); MEAN CORPUSCULAR HEMOGLOBIN 28.4 pg (27.0-33.4); MEAN CORPUSCULAR HGB CONC 33.5 g/dL (32.0-36.0); MEAN CORPUSCULAR VOLUME 85 fl (80-97); PLATELET COUNT 257 10^3/uL (150-450); RED BLOOD COUNT 4.61 10^6/uL (3.72-5.28); RED CELL DISTRIBUTION WIDTH 13.9 % (11.5-14.0); WHITE BLOOD COUNT 7.7 10^3/uL (4.0-10.5)
[~2018-08-18 08:22] MED LIST: LIDOCAINE 0.5% INJ-PF (5 MG/ML) 50 ML SDV SUBCUT PRN; RINGERS SOLUTION,LACTATED 1,000 ML IV PRN
[2018-08-18] MEDS ORDERED: HYDROMORPHONE HCL INJ/PF 2 MG/ML AMPULE ONE (10:09)
[2018-08-18] MEDS ORDERED: FENTANYL CITRATE INJ/PF 100 MCG/2 ML AMPUL ONE ×2 (10:09→11:25)
[2018-08-18] MEDS ORDERED: ONDANSETRON HCL INJ/PF 4 MG/2 ML SDV ONE ×2 (10:09→11:21)
[2018-08-18] MEDS ORDERED: MIDAZOLAM 2 MG/2 ML INJ ONE (10:09)
[2018-08-18] MEDS ORDERED: PROPOFOL INJ 200 MG/20 ML VIAL IV ONE (10:10)
[2018-08-18] MEDS ORDERED: MEPERIDINE HCL/PF INJ 25 MG/1 ML DISP.SYRIN IV PRN (10:49)
[2018-08-18] MEDS ORDERED: PROMETHAZINE HCL INJ 25 MG/1 ML VIAL IV PRN ×2 (10:49)
[2018-08-18] MEDS ORDERED: FENTANYL CITRATE INJ/PF 100 MCG/2 ML AMPUL IV PRN ×3 (10:49)
[2018-08-18] MEDS ORDERED: OXYCODONE-ACETAMINOPHEN 5-325 MG TABLET PO PRN ×4 (10:49→11:11)
[2018-08-18] MEDS ORDERED: DIPHENHYDRAMINE HCL 50 MG/ML VIAL IV PRN (10:49)
--- NOTE | 2018-08-18 11:10 | Operative Report ---
Operative Report DATE OF SURGERY: 08/18/18 PREOPERATIVE DIAGNOSIS: Patient desires a tubal ligation POSTOPERATIVE DIAGNOSIS: Same OPERATION: Laparoscopic tubal ligation with Filshie clips SURGEON: FELICITA LEDESMA ANESTHESIA: GA TISSUE REMOVED OR ALTERED: Fallopian tubes COMPLICATIONS: None ESTIMATED BLOOD LOSS: Minimal INTRAOPERATIVE FINDINGS: Normal fallopian tubes and ovaries PROCEDURE: Patient was taken to the OR and placed in supine position. General anesthesia was induced. She is placed in a dorsolithotomy position using Jamie stirrups. Her perineum vagina and abdomen were prepared and draped in sterile fashion. She had voided prior to coming back and did not need catheterization. An incision was made at the umbilicus natural umbilical defect was identified and dilated with a Eryn clamp. This allowed placement of blunt port. Laparoscopy confirmed appropriate placement. A sponge stick had been placed in the vagina for manipulation of the uterus. Each fallopian tube was identified and followed out to its fimbriated end. Filshie clips were placed across the mid isthmic portion of each fallopian tube without difficulty. Photos were taken there were no complications. The gas was allowed to escape from the abdomen. The port and scope were removed at the same time. The fascia at the umbilicus was closed with a 2-0 Vicryl stitch and skin closed with 4-0 undyed Vicryl stitch. All instruments were removed from the vagina. She was brought out of anesthesia and taken to recovery room in stable condition.
[2018-08-18] MEDS ORDERED: IBUPROFEN 800 MG TABLET PO PRN (11:11)
[2018-08-18] MEDS ORDERED: RINGERS SOLUTION,LACTATED 1,000 ML IV PRN (11:11)
[2018-08-18] MEDS ORDERED: KETOROLAC TROMETHAMINE INJ/PF 30 MG/1 ML SDV IV PRN (11:11)
[2018-08-18] MEDS ORDERED: PROMETHAZINE HCL INJ 25 MG/1 ML VIAL ONE (12:10)
[2018-08-18] MEDS ORDERED: OXYCODONE-ACETAMINOPHEN 5-325 MG TABLET ONE (12:40)
[2018-08-18] MEDS ORDERED: SUCCINYLCHOLINE CHLORIDE INJ 200 MG/10 ML VIAL ONE (13:49)
[2018-08-18 14:17] VITALS: BP 167/96
== END 2018-08-18 13:30 | disposition home or self-care (01) ==
LOC: OROUT 08:22
PROVIDERS: ATTEND Obstetrics & Gynecology
DX: Z30.2 Encounter for sterilization (principal); J45.909 Unspecified asthma, uncomplicated; Z79.51 Long term (current) use of inhaled steroids; F17.210 Nicotine dependence, cigarettes, uncomplicated; G40.909 Epilepsy, unspecified, not intractable, without status epilepticus
CPT/HCPCS: 93005; 36415; 85027; 81005; 81025; 93010; 58671; J2250; J3010; J1170; J2550; J0330; J2405; J2704; 851

== ENCOUNTER 2019-02-16 21:37 | Emergency (ER) | payer MEDICAID ==
[2019-02-16] MEDS ORDERED: OXYCODONE-ACETAMINOPHEN 5-325 MG TABLET PO ONE (21:57)
--- NOTE | 2019-02-16 21:58 | ER Document Report ---
ED General - General Chief Complaint: Chest Pain Stated Complaint: CHEST PAIN Time Seen by Provider: 02/16/19 21:51 TRAVEL OUTSIDE OF THE [place] IN LAST 30 DAYS: No - HPI Notes: 38-year-old female to the emergency department with complaints of anterior and right sided chest wall pain that began 2 days ago. States that she was running up the stairs to her children when she slipped fell striking her chest onto the steps. States that since then she has had increasing chest wall pain that is worse with big deep breath or any movement. She states she feels like she is slightly short of breath because she cannot get a good deep breath. Denies any palpitations, think the, headache, neck pain, loss of consciousness, abdominal pain, nausea, vomiting, blood in urine, extremity pain, fever, chills, cough.. - Related Data Allergies/Adverse Reactions: shrimp Adverse Reaction (Verified 08/18/18 08:46) DIAL SOAP Allergy (Uncoded 08/17/18 09:58) Past Medical History - General Information source: Patient - Social History Smoking Status: Current Every Day Smoker Frequency of alcohol use: Occasional Drug Abuse: None Family History: Reviewed & Not Pertinent - Past Medical History Cardiac Medical History: Reports: Hx Hypertension - POST , PLACED ON MEDS 08/17/18 Denies: Hx Coronary Artery Disease, Hx Heart Attack Pulmonary Medical History: Reports: Hx Asthma Denies: Hx Bronchitis, Hx COPD, Hx Pneumonia Neurological Medical History: Reports: Hx Seizures - 2YRS AGO, NO MEDS. Denies: Hx Cerebrovascular Accident Renal/ Medical History: Denies: Hx Peritoneal Dialysis Musculoskeletal Medical History: Denies Hx Arthritis, Reports Hx Musculoskeletal Deformity Past Surgical History: Reports: Hx Open Heart Surgery - Immunizations Immunizations up to date: Yes Hx Diphtheria, Pertussis, Tetanus Vaccination: Yes Review of Systems - Review of Systems Constitutional: denies: Chills, Fever EENT: denies: No symptoms reported Cardiovascular: Chest pain. denies: Palpitations, Heart racing, Syncope, Dizziness, Lightheaded, Edema Respiratory: Short of breath. denies: Cough Gastrointestinal: No symptoms reported Genitourinary: denies: Hematuria Musculoskeletal: Muscle pain - Chest wall pain Skin: denies: No symptoms reported Neurological/Psychological: denies: No symptoms reported -: Yes All other systems reviewed and negative Physical Exam - Vital signs Vitals: Temp Pulse Resp BP Pulse Ox 98.1 F 76 20 145/79 H 100 02/16/19 23:22 02/16/19 23:22 02/16/19 23:22 02/16/19 23:22 02/16/19 23:22 Interpretation: Hypertensive - General General appearance: Appears well In distress: Mild - In mild pain distress. Wincing every time she tries to take a big deep breath - HEENT Head: Normocephalic, Atraumatic Eyes: Normal Pupils: PERRL - Respiratory Respiratory status: No respiratory distress Chest status: Tender - Tenderness to palpation over the anterior chest wall with no step-off or crepitus at the midline chest level of rib 5 6 and 7. Also tenderness to palpation to the lateral right chest wall at ribs 7 8 and 9. There is no step-off, ecchymosis, crepitus or skin changes. Patient has increased pain with big deep breath and coughing. She also has increased pain on movement, Pain on movement, Pain with cough, Pain with deep breathing. No: Ecchymosis, Accessory muscle use, Prolonged expirations Breath sounds: Normal Chest palpation: Normal - Cardiovascular Rhythm: Regular Heart sounds: Normal auscultation Murmur: No - Abdominal Inspection: Normal Distension: No distension Bowel sounds: Normal Tenderness: Nontender Organomegaly: No organomegaly - Back Back: Normal, Nontender. No: CVA tenderness, Vertebra tenderness - Extremities General upper extremity: Normal inspection, Nontender, Normal color, Normal ROM, Normal temperature General lower extremity: Normal inspection, Nontender, Normal color, Normal ROM, Normal temperature, Normal weight bearing. No: Karen's sign - Neurological Neuro grossly intact: Yes Cognition: Normal Orientation: AAOx4 [place] Coma Scale Eye Opening: Spontaneous [place] Coma Scale Verbal: Oriented [place] Coma Scale Motor: Obeys Commands [place] Coma Scale Total: 15 Speech: Normal Motor strength normal: LUE, RUE, LLE, RLE Sensory: Normal - Psychological Associated symptoms: Normal affect, Normal mood - Skin Skin Temperature: Warm Skin Moisture: Dry Skin Color: Normal Course - Re-evaluation Re-evalutation: 02/17/19 impression: Patient is feeling better after pain medicine here in the emergency department. Reviewed with her x-ray findings which do not illustrate an acute rib fracture. Suspect that she has a rib contusion. Will send home with pain medicine, have encouraged warm compresses and have instructed on and dispensed spirometer. We will have her return if her symptoms worsen to include worsening chest pain, shortness of breath, respiratory distress, fever, cough or any other complaints. We will have her follow-up with primary care physician for further outpatient care. - Vital Signs Vital signs: Temp Pulse Resp BP Pulse Ox 98.1 F 76 20 145/79 H 100 02/16/19 23:22 02/16/19 23:22 02/16/19 23:22 02/16/19 23:22 02/16/19 23:22 - Diagnostic Test Radiology reviewed: Image reviewed, Reports reviewed - EKG Interpretation by Me EKG shows normal: Sinus rhythm Rate: Normal Rhythm: NSR Voltage: Consistant with LVH When compared to previous EKG there are: No significant change Additional EKG results interpreted by me: 02/17/19 STEMI, positive for LVH. This is unchanged from prior EKGs. Discharge - Discharge Clinical Impression: Fall, Rib injury, Musculoskeletal chest pain Disposition: HOME, SELF-CARE Instructions: [facility]aring [facility], Chest Wall Pain ([facility]), Rib Injuries and Fractures ([facility]) Additional Instructions: Rib Injuries and Fractures You have been diagnosed as having either bruised or broken ribs. These two injuries are treated in the same way. It will usually take four to six weeks for these injured ribs to heal. Sometimes, rib belts or anesthetic injections of the chest wall help reduce the pain. If you are using a rib belt, you should cough or take a deep breath at least every hour or two to prevent lung complications. You should not engage in any strenuous physical activity until released by your physician. The usual rule is "if it hurts, don't do it." Rib fractures can lead to serious lung complications including lung collapse, hemorrhage, and pneumonia. You should call the physician or return at once if any of the following occur: (1) Fever or chills. (2) Persistent cough, coughing up blood, or shortness of breath. (3) Increasing pain. (4) Weakness, lightheadedness, or fainting. Prescriptions: Ibuprofen [Motrin 800 mg Tablet] 800 mg PO Q8H PRN #30 tab PRN Reason: Oxycodone HCl/Acetaminophen [Percocet 5-325 mg Tablet] 1 tab PO Q6H PRN #10 tablet PRN Reason:
--- NOTE | 2019-02-16 22:40 | RADIOLOGY REPORT (SQ) ---
EXAM DESCRIPTION: XR RIBS BILATERAL WITH CHEST COMPLETED DATE/TME: 02/16/2019 21:57 CLINICAL HISTORY: 38 years, Female, fall, rib pain COMPARISON: None. NUMBER OF VIEWS: Four TECHNIQUE: Two PA views of the chest, one right and one left oblique views of the ribs. LIMITATIONS: None. FINDINGS: Cardiomediastinal silhouette is within normal limits. No lung consolidate. No pleural effusion. No pneumothorax. No evidence of rib fracture. IMPRESSION: No acute chest finding. Negative for rib fracture. copyright 2010 [employer]- All Rights Reserved
[2019-02-16 23:25] VITALS: BP 145/79
--- NOTE | 2019-02-17 00:02 | EKG REPORT ---
SEVERITY:- ABNORMAL ECG - SINUS RHYTHM LVH : Confirmed by: Nancy Layne MD 17-Feb-2019 00:01:26
== END 2019-02-16 23:22 | disposition home or self-care (01) ==
LOC: ER 21:37
DX: S29.9XXA Unspecified injury of thorax, initial encounter (principal); R07.89 Other chest pain; R06.02 Shortness of breath; F17.200 Nicotine dependence, unspecified, uncomplicated; W10.9XXA Fall (on) (from) unspecified stairs and steps, initial encounter
CPT/HCPCS: 71111; 93005; 93010; 99283

== ENCOUNTER 2019-02-20 21:46 | Emergency (ER) | payer MEDICAID ==
[2019-02-20 22:09] VITALS: BP 160/97
--- NOTE | 2019-02-22 19:13 | EKG REPORT ---
SEVERITY:- ABNORMAL ECG - SINUS RHYTHM CONSIDER LEFT VENTRICULAR HYPERTROPHY : Confirmed by: Aaron Chavis MD 22-Feb-2019 19:12:37
== END 2019-02-20 23:55 | disposition left against medical advice (07) ==
LOC: ER 21:46
DX: Z53.21 Procedure and treatment not carried out due to patient leaving prior to being seen by health care provider (principal)
CPT/HCPCS: 93005; 93010; 99281

== ENCOUNTER 2019-05-07 22:46 | Emergency (ER) | payer MEDICAID ==
[2019-05-08] MEDS ORDERED: MORPHINE SULFATE 10 MG/ML INJ IV ONE (01:52)
[2019-05-08] MEDS ORDERED: NORMAL SALINE 1000 ML 1,000 ML IV ONE (01:52)
[2019-05-08] MEDS ORDERED: ONDANSETRON HCL INJ/PF 4 MG/2 ML SDV IV ONE (01:52)
--- NOTE | 2019-05-08 01:53 | ER Document Report ---
ED GI/ - General Chief Complaint: Flank Pain Stated Complaint: HIGH BLOOD PRESSURE Time Seen by Provider: 05/08/19 01:40 Notes: Patient is a 38-year-old female that comes emergency department for chief complaint of abdominal pain and flank pain. She states that symptoms started 2 days ago. She states that pain is occasionally sharp, she has more noticeable pain in the right flank and right abdomen but she is trying to get it on both sides as well. She states her abdomen feels "hard" and she reports nausea. She denies vomiting or fever. She denies abnormal vaginal discharge, vaginal bleeding, dysuria. She states she has frequent kidney infections and this feels similar. Past medical history of asthma, , cardiac surgery as an . TRAVEL OUTSIDE OF THE [place] IN LAST 30 DAYS: No - Related Data Allergies/Adverse Reactions: shrimp Adverse Reaction (Verified 05/08/19 01:25) DIAL SOAP Allergy (Uncoded 05/08/19 01:25) Past Medical History - General Information source: Patient - Social History Smoking Status: Current Every Day Smoker Frequency of alcohol use: None Drug Abuse: None Lives with: Family Family History: Reviewed & Not Pertinent Patient has suicidal ideation: No Patient has homicidal ideation: No - Past Medical History Cardiac Medical History: Reports: Hx Hypertension - POST Denies: Hx Coronary Artery Disease, Hx Heart Attack Pulmonary Medical History: Reports: Hx Asthma Denies: Hx Bronchitis, Hx COPD, Hx Pneumonia Neurological Medical History: Reports: Hx Seizures - last 2016. Denies: Hx Cerebrovascular Accident Renal/ Medical History: Denies: Hx Peritoneal Dialysis Musculoskeletal Medical History: Denies Hx Arthritis, Reports Hx Musculoskeletal Deformity Past Surgical History: Reports: Hx Open Heart Surgery - Coarctation repair - Immunizations Immunizations up to date: Yes Hx Diphtheria, Pertussis, Tetanus Vaccination: Yes Review of Systems - Review of Systems Constitutional: No symptoms reported EENT: No symptoms reported Cardiovascular: No symptoms reported Respiratory: No symptoms reported Gastrointestinal: See HPI Genitourinary: See HPI Female Genitourinary: No symptoms reported Musculoskeletal: No symptoms reported Skin: No symptoms reported Hematologic/Lymphatic: No symptoms reported Neurological/Psychological: No symptoms reported Physical Exam - Vital signs Vitals: Temp Pulse Resp BP Pulse Ox 98.1 F 55 L 16 158/91 H 98 05/07/19 23:58 05/07/19 23:58 05/07/19 23:58 05/07/19 23:58 05/07/19 23:58 - Notes Notes: GENERAL: Patient alert and well-appearing, no severe distress but she does shift around uncomfortably occasionally HEAD: Normocephalic, atraumatic. EYES: Pupils equal, round, and reactive to light. Extraocular movements intact. ENT: Oral mucosa dry, tongue midline. Oropharynx unremarkable. Airway patent. Nares patent, no nasal septal hematoma, TM's intact. NECK: Full range of motion. Supple. Trachea midline. LUNGS: Clear to auscultation bilaterally, no wheezes, rales, or rhonchi. No respiratory distress. HEART: Regular rate and rhythm. No murmur ABDOMEN: There is some mild generalized tenderness on the right side of the abdomen, no specific guarding, no McBurney's tenderness, no rigidity. Bowel sounds present. GENITOURINARY: Deferred EXTREMITIES: Moves all 4 extremities spontaneously. No edema, normal radial and dorsalis pedis pulses bilaterally. No cyanosis. BACK: No overt CVA tenderness. No cervical, thoracic, lumbar midline tenderness. No saddle anesthesia, normal distal neurovascular exam. Moves all extremities in full range of motion. NEUROLOGICAL: Alert and oriented x3. Normal speech. Cranial nerves II through XII grossly intact. PSYCH: Normal affect, normal mood. SKIN: Warm, dry, normal turgor. No rashes or lesions noted. Course - Re-evaluation Re-evalutation: CBC, chemistry nonspecific. Urinalysis showing hematuria, positive nitrites. Also slightly nonspecific. Patient reporting flank pain, she states that occasionally this got very severe. She does not have a history of kidney stones. Because of the hematuria, mainly pain on the right side of the abdomen, I did discuss options with patient and decision was made to perform CAT scan. She states she has never had a CAT scan. CAT scan showing small nephrolithiasis on both sides, nonspecific slight dilation of the renal pelvis, no ureterolithiasis, no acute findings otherwise. After pain medication patient symptom-free. Culture placed for the urine, placing on antibiotics because of the positive nitrites, discussed findings in detail. Patient was very surprised about the kidney stones, discussed primary care follow-up, urology follow-up, and return precautions in detail. Patient states appreciation and agreement. Stable at time of discharge. - Vital Signs Vital signs: Temp Pulse Resp BP Pulse Ox 98 F 61 17 151/97 H 99 05/08/19 02:57 05/08/19 02:57 05/08/19 02:57 05/08/19 02:57 05/08/19 02:57 - Laboratory Result Diagrams: 05/08/19 02:46 05/08/19 02:46 Laboratory results interpreted by me: 05/08/19 05/08/19 05/08/19 01:31 02:46 02:46 Hgb 10.7 L Hct 31.8 L MCV 78 L MCH 26.3 L RDW 15.1 H Potassium 3.4 L Chloride 108 H Urine Protein 30 H Urine Blood MODERATE H Urine Nitrite POSITIVE H Urine Urobilinogen 2.0 H Discharge - Discharge Clinical Impression: Flank pain, Nephrolithiasis Abdominal pain Qualifiers: Abdominal location: generalized Qualified Code(s): R10.84 - Generalized abdominal pain Hematuria Qualifiers: Hematuria type: unspecified type Qualified Code(s): R31.9 - Hematuria, unspecified Urinary tract infection Qualifiers: Urinary tract infection type: site unspecified Hematuria presence: with hematuria Qualified Code(s): N39.0 - Urinary tract infection, site not specified Condition: Stable Disposition: HOME, SELF-CARE Additional Instructions: You have small kidney stones in both of your kidneys along with evidence of a urinary tract infection. I suspect to have passed stones recently based on your symptoms and your imaging. Take the antibiotics as prescribed, take the pain medication and nausea medication only if needed, ibuprofen can help with pain as well. Drink plenty fluids. Follow-up with primary care (and subsequently urology through referral from them). Return if you worsen including fever, vomiting, severe worsening pain, or any other concerning symptoms. Prescriptions: Cephalexin Monohydrate [Keflex 500 mg Capsule] 500 mg PO BID 7 Days #14 capsule Hydrocodone/Acetaminophen [[place] 5-325 mg Tablet] 1 - 2 tab PO ASDIR PRN #10 tablet PRN Reason: Ondansetron [Zofran Odt 4 mg Tablet] 1 - 2 tab PO Q4H PRN #15 tab.rapdis PRN Reason: For Nausea/Vomiting
[2019-05-08 01:55] LABS: APPEARANCE,URINE SLIGHTLY-CLOUDY; BILIRUBIN,URINE NEGATIVE (NEGATIVE); COLOR,URINE YELLOW; GLUCOSE, URINE NEGATIVE (NEGATIVE); KETONES,URINE NEGATIVE (NEGATIVE); LEUKOCYTE ESTERASE,URINE NEGATIVE (NEGATIVE); NITRITE,URINE POSITIVE (NEGATIVE); PROTEIN,URINE 30 mg/dL (NEGATIVE); URINE SPECIFIC GRAVITY 1.019
[2019-05-08 02:55] LABS: ABSOLUTE BASOPHILS # (AUTO) 0.1 10^3/uL (0.0-0.2); ABSOLUTE EOSINOPHILS # (AUTO) 0.1 10^3/uL (0.0-0.6); ABSOLUTE LYMPHOCYTES (AUTO) 2.4 10^3/uL (0.5-4.7); ABSOLUTE MONOCYTES (AUTO) 0.5 10^3/uL (0.1-1.4); ABSOLUTE NEUT (AUTO) 4.7 10^3/uL (1.7-8.2); BASOPHILS % (AUTO) 0.8 % (0-2); EOSINOPHILS % (AUTO) 1.2 % (0-6); HEMATOCRIT 31.8 % (36.0-47.0); HEMOGLOBIN 10.7 g/dL (12.0-15.5); LYMPHOCYTES % (AUTO) 31.1 % (13-45); MEAN CORPUSCULAR HEMOGLOBIN 26.3 pg (27.0-33.4); MEAN CORPUSCULAR HGB CONC 33.6 g/dL (32.0-36.0); MEAN CORPUSCULAR VOLUME 78 fl (80-97); MONOCYTES % (AUTO) 6.8 % (3-13); PLATELET COUNT 206 10^3/uL (150-450); RED BLOOD COUNT 4.07 10^6/uL (3.72-5.28); RED CELL DISTRIBUTION WIDTH 15.1 % (11.5-14.0); SEGMENTED NEUTROPHILS % (AUTO) 60.1 % (42-78); TOTAL CELLS COUNTED % (AUTO) 100 %; WHITE BLOOD COUNT 7.9 10^3/uL (4.0-10.5)
[2019-05-08 03:09] VITALS: BP 151/97
[2019-05-08 03:16] LABS: ALBUMIN 3.9 g/dL (3.5-5.0); ALKALINE PHOSPHATASE 66 U/L (38-126); ANION GAP 6 (5-19); ASPARTATE AMINO TRANSFERASE 20 U/L (14-36); BILIRUBIN,DIRECT 0.1 mg/dL (0.0-0.4); BILIRUBIN,TOTAL 0.4 mg/dL (0.2-1.3); BLOOD UREA NITROGEN 18 mg/dL (7-20); CALCIUM 8.9 mg/dL (8.4-10.2); CARBON DIOXIDE 26 mmol/L (22-30); CHLORIDE 108 mmol/L (98-107); GLUCOSE 89 mg/dL (75-110); POTASSIUM 3.4 mmol/L (3.6-5.0); TOTAL PROTEIN 6.5 g/dL (6.3-8.2)
--- NOTE | 2019-05-08 05:07 | RADIOLOGY REPORT (SQ) ---
CT abdomen and pelvis without contrast on 05/08/2019 at 4:06 AM CLINICAL INDICATION: Right-sided back pain, hematuria TECHNIQUE: Multiple axial images are obtained throughout the abdomen and pelvis without the administration of contrast. This exam was performed according to our departmental dose-optimization program, which includes automated exposure control, adjustment of the mA and/or kV according to patient size and/or use of iterative reconstruction technique. Total DLP is 227.03 mGy*cm. COMPARISON: None FINDINGS: Abdomen: The lung bases are clear. There is a 1.4 cm homogeneous right adrenal nodule that measures -14 Hounsfield units and is consistent with an adenoma with no follow-up recommended. There are multiple small nonobstructing bilateral renal stones. There is mild prominence of the bilateral renal collecting system however without ureteral stones noted. The unenhanced solid abdominal organs are otherwise unremarkable. There is no abdominal adenopathy. There is no free fluid or free air within the abdomen. The abdominal portion of the GI tract is unremarkable. Pelvis: Pelvic organs appear unremarkable by CT. Small amount of free fluid in the pelvis is likely physiologic. There is no pelvic adenopathy. Pelvic portion of the GI tract including the appendix is unremarkable. No bony abnormality is noted. IMPRESSION: 1. Bilateral nephrolithiasis with some prominence of the bilateral renal collecting systems but no ureteral stones noted. 2. No other acute abnormality.
[2019-05-08] MEDS ORDERED: CEPHALEXIN 500 MG CAPSULE PO ONE (05:14)
--- NOTE | 2019-05-09 13:31 | ER Document Report ---
Doctor's Note Notes: 05/09/19 13:31 Received a call from [facility] stating that 1 to 2 tablets of hydrocodone every 4- 6 hours exceeds their narcotic pain medication policy. I instructed them to change it 1 to 2 tablets every 6 hours as needed. This was approved.
== END 2019-05-08 05:34 | disposition home or self-care (01) ==
LOC: ER 22:46
DX: N39.0 Urinary tract infection, site not specified (principal); R31.9 Hematuria, unspecified; N20.0 Calculus of kidney; R10.84 Generalized abdominal pain; R11.0 Nausea; J45.909 Unspecified asthma, uncomplicated; F17.200 Nicotine dependence, unspecified, uncomplicated
CPT/HCPCS: 99284; 96361; 96374; 96375; 36415; 87086; 83690; 85025; 81025; 87088; 80053; 81001; 87186; 74176; J2270; J2405; J7030

== ENCOUNTER 2019-05-17 13:09 | Emergency (ER) | payer MEDICAID ==
[2019-05-17] MEDS ORDERED: RINGERS SOLUTION,LACTATED 1,000 ML IV ONE (13:41)
[2019-05-17] MEDS ORDERED: ONDANSETRON HCL INJ/PF 4 MG/2 ML SDV IV ONE (13:41)
--- NOTE | 2019-05-17 13:44 | ER Document Report ---
ED Medical Screen (RME) - General Chief Complaint: Flank Pain Stated Complaint: VOMITING Time Seen by Provider: 05/17/19 13:39 Notes: Patient is a 38-year-old female who presents emergency department with a chief complaint of bilateral flank pain. She was diagnosed with a urinary tract infection with renal stones last week. She states that her symptoms have gotten worse. States that she has also been vomiting. The vomiting started this morning and she ended up vomiting, "chunks of blood." She states that she finished all her antibiotics. Patient admits to having a tubal ligation. Exam: Bilateral CVA tenderness. I have greeted and performed a rapid initial assessment of this patient. A comprehensive ED assessment and evaluation of the patient, analysis of test results and completion of medical decision making process will be conducted by an additional ED providers. TRAVEL OUTSIDE OF THE [place] IN LAST 30 DAYS: No - Related Data Allergies/Adverse Reactions: shrimp Adverse Reaction (Verified 05/17/19 13:24) DIAL SOAP Allergy (Uncoded 05/17/19 13:24) Past Medical History - Social History Chew tobacco use (# tins/day): No Frequency of alcohol use: None Drug Abuse: None - Past Medical History Cardiac Medical History: Reports: Hx Hypertension - POST Denies: Hx Coronary Artery Disease, Hx Heart Attack Pulmonary Medical History: Reports: Hx Asthma Denies: Hx Bronchitis, Hx COPD, Hx Pneumonia Neurological Medical History: Reports: Hx Seizures - last 2016. Denies: Hx Cerebrovascular Accident Renal/ Medical History: Denies: Hx Peritoneal Dialysis Musculoskeltal Medical History: Denies Hx Arthritis, Reports Hx Musculoskeletal Deformity Past Surgical History: Reports: Hx Open Heart Surgery - Coarctation repair - Immunizations Immunizations up to date: Yes Hx Diphtheria, Pertussis, Tetanus Vaccination: Yes Physical Exam - Vital signs Vitals: Temp Pulse Resp BP Pulse Ox 97.7 F 61 16 158/103 H 100 05/17/19 13:16 05/17/19 13:16 05/17/19 13:16 05/17/19 13:16 05/17/19 13:16 Course - Vital Signs Vital signs: Temp Pulse Resp BP Pulse Ox 97.7 F 61 16 158/103 H 100 05/17/19 13:16 05/17/19 13:16 05/17/19 13:16 05/17/19 13:16 05/17/19 13:16
[2019-05-17 14:06] LABS: ABSOLUTE EOSINOPHILS # (AUTO) 0.1 10^3/uL (0.0-0.6); ABSOLUTE LYMPHOCYTES (AUTO) 1.4 10^3/uL (0.5-4.7); ABSOLUTE MONOCYTES (AUTO) 0.6 10^3/uL (0.1-1.4); ABSOLUTE NEUT (AUTO) 10.9 10^3/uL (1.7-8.2); BASOPHILS % (AUTO) 0.3 % (0-2); EOSINOPHILS % (AUTO) 0.5 % (0-6); HEMATOCRIT 37.6 % (36.0-47.0); HEMOGLOBIN 12.3 g/dL (12.0-15.5); MEAN CORPUSCULAR HEMOGLOBIN 25.6 pg (27.0-33.4); MEAN CORPUSCULAR HGB CONC 32.8 g/dL (32.0-36.0); MEAN CORPUSCULAR VOLUME 78 fl (80-97); MONOCYTES % (AUTO) 4.8 % (3-13); PLATELET COUNT 272 10^3/uL (150-450); RED BLOOD COUNT 4.81 10^6/uL (3.72-5.28); RED CELL DISTRIBUTION WIDTH 15.1 % (11.5-14.0); SEGMENTED NEUTROPHILS % (AUTO) 83.4 % (42-78); TOTAL CELLS COUNTED % (AUTO) 100 %; WHITE BLOOD COUNT 13.1 10^3/uL (4.0-10.5)
[2019-05-17 14:21] LABS: APPEARANCE,URINE SLIGHTLY-CLOUDY; BILIRUBIN,URINE NEGATIVE (NEGATIVE); COLOR,URINE YELLOW; GLUCOSE, URINE NEGATIVE (NEGATIVE); KETONES,URINE NEGATIVE (NEGATIVE); LEUKOCYTE ESTERASE,URINE NEGATIVE (NEGATIVE); NITRITE,URINE NEGATIVE (NEGATIVE); PROTEIN,URINE 100 mg/dL (NEGATIVE); UROBILINOGEN,URINE NEGATIVE mg/dL (<2.0)
[2019-05-17 14:28] LABS: ALBUMIN 4.6 g/dL (3.5-5.0); ALKALINE PHOSPHATASE 68 U/L (38-126); ANION GAP 9 (5-19); ASPARTATE AMINO TRANSFERASE 20 U/L (14-36); BILIRUBIN,DIRECT 0.1 mg/dL (0.0-0.4); BILIRUBIN,TOTAL 0.5 mg/dL (0.2-1.3); BLOOD UREA NITROGEN 21 mg/dL (7-20); CALCIUM 9.3 mg/dL (8.4-10.2); CARBON DIOXIDE 28 mmol/L (22-30); CHLORIDE 105 mmol/L (98-107); GLUCOSE 95 mg/dL (75-110); POTASSIUM 3.7 mmol/L (3.6-5.0); TOTAL PROTEIN 7.6 g/dL (6.3-8.2)
--- NOTE | 2019-05-17 14:47 | ER Document Report ---
ED GI/ - General Chief Complaint: Flank Pain Stated Complaint: VOMITING Time Seen by Provider: 05/17/19 13:39 Mode of Arrival: Ambulatory Information source: Patient Notes: 38-year-old female presents to ED for complaint of bilateral renal pain 1 and and was diagnosed with kidney stones last week. She states she also had some blood in the urine and was diagnosed with a UTI and is completed all of her antibiotics. She states she was also on Vicodin which could have made her throw up. She patient states she threw up some chunks of something that looked like blood but she has not eaten this morning but she did have chicken last night. Patient is alert oriented respirations are nonlabored speaking in full sentences walks with even steady gait. TRAVEL OUTSIDE OF THE [place] IN LAST 30 DAYS: No - HPI Patient complains to provider of: Flank pain, Vomiting Onset: This morning Timing/Duration: Intermittent Quality of pain: Achy, Pressure Severity at maximum: Severe Severity in ED: Severe Pain Level: 5 Location: Left flank, Right flank Vaginal bleeding (Compared to normal period): None Associated symptoms: Nausea, Vomiting Exacerbated by: Movement, Walking Relieved by: Denies Similar symptoms previously: Yes Recently seen / treated by doctor: Yes - Related Data Allergies/Adverse Reactions: shrimp Adverse Reaction (Verified 05/17/19 13:24) DIAL SOAP Allergy (Uncoded 05/17/19 13:24) Past Medical History - General Information source: Patient - Social History Smoking Status: Current Every Day Smoker Cigarette use (# per day): Yes - 1/2 ppd Chew tobacco use (# tins/day): No Smoking Education Provided: Yes - 4 min Frequency of alcohol use: Rare Drug Abuse: None Occupation: none Lives with: Alone - with 6 children Family History: Reviewed & Not Pertinent Patient has suicidal ideation: No Patient has homicidal ideation: No - Past Medical History Cardiac Medical History: Reports: Hx Hypertension - POST , Other - Coarctation of aorta Pulmonary Medical History: Reports: Hx Asthma EENT Medical History: Reports: None Neurological Medical History: Reports: Hx Seizures - last 2017 Endocrine Medical History: Reports: None Renal/ Medical History: Reports: Hx Kidney Stones Malignancy Medical History: Reports: None GI Medical History: Reports: None Musculoskeletal Medical History: Reports Hx Musculoskeletal Deformity Skin Medical History: Reports None Psychiatric Medical History: Reports: None Traumatic Medical History: Reports: None Infectious Medical History: Reports: None Past Surgical History: Reports: Hx Section, Hx Open Heart Surgery - Coarctation repair, Hx Tubal Ligation - Immunizations Immunizations up to date: Yes Hx Diphtheria, Pertussis, Tetanus Vaccination: Yes Review of Systems - Review of Systems Constitutional: No symptoms reported EENT: No symptoms reported Cardiovascular: No symptoms reported Respiratory: No symptoms reported Gastrointestinal: Abdominal pain, Nausea, Vomiting Genitourinary: Flank pain Female Genitourinary: No symptoms reported Musculoskeletal: No symptoms reported Skin: No symptoms reported Hematologic/Lymphatic: No symptoms reported Neurological/Psychological: No symptoms reported -: Yes All other systems reviewed and negative Physical Exam - Vital signs Vitals: Temp Pulse Resp BP Pulse Ox 97.7 F 61 16 158/103 H 100 05/17/19 13:16 05/17/19 13:16 05/17/19 13:16 05/17/19 13:16 05/17/19 13:16 Interpretation: Normal - General General appearance: Appears well, Alert - HEENT Head: Normocephalic, Atraumatic Eyes: Normal Pupils: PERRL - Respiratory Respiratory status: No respiratory distress Chest status: Nontender Breath sounds: Normal Chest palpation: Normal - Cardiovascular Rhythm: Regular Heart sounds: Normal auscultation Murmur: No - Abdominal Inspection: Normal Distension: No distension Bowel sounds: Normal Tenderness: Nontender Organomegaly: No organomegaly - Back Back: Normal, Nontender, CVA tenderness - bilateral flank - Extremities General upper extremity: Normal inspection, Nontender, Normal color, Normal ROM, Normal temperature General lower extremity: Normal inspection, Nontender, Normal color, Normal ROM, Normal temperature, Normal weight bearing. No: Karen's sign - Neurological Neuro grossly intact: Yes Cognition: Normal Orientation: AAOx4 Clair Coma Scale Eye Opening: Spontaneous Maynard Coma Scale Verbal: Oriented Clair Coma Scale Motor: Obeys Commands Maynard Coma Scale Total: 15 Speech: Normal Motor strength normal: LUE, RUE, LLE, RLE Sensory: Normal - Psychological Associated symptoms: Normal affect, Normal mood - Skin Skin Temperature: Warm Skin Moisture: Dry Skin Color: Normal Course - Re-evaluation Re-evalutation: 05/18/19 02:31 All radiological and laboratory testing were discussed with patient and written report of laboratory and radiological test given to patient. Patient was treated with IV fluids and Zofran. There was no obvious reasons for her pain. She was no longer nauseated and was able to take fluids before she was discharged. Home. - Vital Signs Vital signs: Temp Pulse Resp BP Pulse Ox 98.2 F 51 L 14 173/82 H 99 05/17/19 17:26 05/17/19 17:26 05/17/19 17:26 05/17/19 17:26 05/17/19 17:26 - Laboratory Result Diagrams: 05/17/19 13:54 05/17/19 13:54 Laboratory results interpreted by me: 05/17/19 05/17/19 05/17/19 13:54 13:54 13:54 WBC 13.1 H MCV 78 L MCH 25.6 L RDW 15.1 H Lymph % (Auto) 11.0 L Absolute Neuts (auto) 10.9 H Seg Neutrophils % 83.4 H BUN 21 H Urine Protein 100 H Urine Blood MODERATE H - Diagnostic Test Radiology reviewed: Image reviewed, Reports reviewed Discharge - Discharge Clinical Impression: Flank pain, non obstructing kidney stone Condition: Stable Disposition: HOME, SELF-CARE Instructions: Family Physicians / Practices Additional Instructions: Flank Pain We weren't able to prove an exact cause for your flank pain. Pain in the flank can be caused by a muscle strain or spasm. Sometimes a kidney stone causes pain, but can't be found on our tests. Infection in the kidney should be evident on a urine test. Early shingles can occasionally cause flank pain, without the rash that proves the diagnosis. On rare occasions, disease of the pancreas, aorta, spleen, or colon can create pain in the flank. At this time, there's no evidence of a dangerous condition, and it seems safe for you to be at home. If the pain goes away and does not come back, no further testing will be needed. If pain persists, or becomes more severe, we may need to repeat some tests or order additional new testing. Blood in the urine, urgency to urinate frequently, and pain that radiates to the groin can indicate a kidney stone. Fever may mean that the pain is due to infection, either of the kidney or the colon (diverticulitis). If your pain is early shingles, you should develop an eruption of blisters in the painful area within a few days. Call the doctor or return if you have pain that is spreading or becoming more severe, pain that does not resolve with time, fever, or any other new symptoms. Kidney Stone You have a non obstructing kidney stone. These stones are usually due to increased calcium or uric acid concentrations in your urine. Stones within the kidney itself are not painful. The pain occurs as the stone leaves the kidney to pass down the long tube, called the ureter, leading to the bladder. If the stone is small, it will usually pass by itself. Most patients can pass the stone at home. You will usually receive medications for pain, nausea or vomiting, and sometimes a medication to assist in passing the kidney stone. However, if the pain is very severe or if vomiting prevents you from taking oral pain medications, you may need to return for further treatment. Drink three or four quarts of fluids per day. You will be given pain medication (if needed) and urine strainers. Strain all your urine to see if the stone passes. If your doctor has asked you to bring the stone in for analysis, return with the stone once it has passed. Return if pain or vomiting become severe, if you develop a high fever, if you are unable to pass your urine, or if other unusual symptoms occur. Ibuprofen Ibuprofen is an excellent, safe drug for pain control. In addition, it has potent antiinflammatory effects which are beneficial, especially in the treatment of injuries, arthritis, or tendonitis. It's best to take ibuprofen with food. Persons with ulcer disease or allergy to aspirin should notify their physician of this before taking ibuprofen. Take the medication exactly as prescribed. Don't take additional doses unless instructed to do so by your doctor. If you develop wheezing, shortness of breath, hives, faintness, stomach pain, vomiting, or dark black stools, return for re-evaluation at once. Antinausea Medication You have been given a medication to suppress nausea and vomiting. This type of medication can be given as a shot, pill, or suppository. It will usually last for many hours. Pills and shots usually last six to eight hours, suppositories last about 12 hours. For the typical illness, only one or two doses of the medication may be necessary. Mild lightheadedness may occur. This type of medicine can cause drowsiness. Do not drive or operate dangerous machinery while under its influence. Do not mix with alcohol. See your doctor at once if you have muscle spasms or tightness, or uncontrollable motions (particularly of the neck, mouth, or jaw). Persistent vomiting or severe lightheadedness should also be evaluated by the physician. FOLLOW-UP CARE: If you have been referred to a physician for follow-up care, call the physicians office for an appointment as you were instructed or within the next two days. If you experience worsening or a significant change in your symptoms, notify the physician immediately or return to the Emergency Department at any time for re-evaluation. Prescriptions: Ibuprofen [Motrin 600 mg Tablet] 600 mg PO Q8HP PRN #30 tablet PRN Reason: Ondansetron [Zofran Odt 4 mg Tablet] 1 tab PO Q6H #15 tab.rapdis Forms: Elevated Blood Pressure, Smoking Cessation Education, Return to Work
[2019-05-17 17:28] VITALS: BP 173/82
--- NOTE | 2019-05-17 17:40 | RADIOLOGY REPORT (SQ) ---
EXAM DESCRIPTION: U/S RETROPERITON (RENAL/AORTA) COMPLETED DATE/TIME: 05/17/2019 5:27 pm REASON FOR STUDY: hematurian renal pain nausea COMPARISON: None. TECHNIQUE: Dynamic and static grayscale images acquired of the kidneys and bladder and recorded on P ACS. Additional selected color Doppler and spectral images recorded. LIMITATIONS: None. FINDINGS: RIGHT KIDNEY: The right kidney measures 11.5 cm in length. Normal echogenicity. No so lid or suspicious masses. No hydronephrosis. There is a 5.5 mm echogenic focus consistent with no nobstructing stone. LEFT KIDNEY: The left kidney measures 11.4 cm in length. Normal echogenicity. No solid or suspic ious masses. No hydronephrosis. Small stones demonstrated on CT are not apparent on ultrasound. BLADDER: No masses. OTHER FINDINGS: No other significant finding. IMPRESSION: Small right renal calculus which is nonobstructing. Kidneys are normal in size and echo genicity. No hydronephrosis. TECHNICAL DOCUMENTATION: JOB ID: [id number] [employer]- All Rights Reserved Reading location - IP/workstation name: [email or web address]
== END 2019-05-17 18:08 | disposition home or self-care (01) ==
LOC: ER 13:09
DX: N20.0 Calculus of kidney (principal); R11.2 Nausea with vomiting, unspecified; R10.9 Unspecified abdominal pain; J45.909 Unspecified asthma, uncomplicated; F17.210 Nicotine dependence, cigarettes, uncomplicated; Z71.6 Tobacco abuse counseling; Z87.440 Personal history of urinary (tract) infections
CPT/HCPCS: 36415; 83690; 85025; 81025; 80053; 81001; 76770; J2405; J7120; 96361; 96374; 99284

== ENCOUNTER 2019-09-22 10:36 | Emergency (ER) | payer MEDICAID ==
[2019-09-22] MEDS ORDERED: ONDANSETRON 4 MG TAB.RAPDIS PO ONE (11:18)
--- NOTE | 2019-09-22 11:19 | ER Document Report ---
ED Medical Screen (RME) - General Chief Complaint: Abdominal Pain Stated Complaint: ABDOMINAL PAIN Time Seen by Provider: 09/22/19 11:13 TRAVEL OUTSIDE OF THE [place] IN LAST 30 DAYS: No - HPI Notes: 09/22/19 11:18 Patient is a 39-year-old female who presents complaining of right upper quadrant abdominal pain that began during the night. She did wake up with nausea and vomiting. The pain does not radiate otherwise. She is urinating normally and having normal bowel movements. She has had decreased p.o. intake. No fever, chest pain, shortness of breath, diarrhea, dysuria. I have treated and performed a rapid initial assessment of this patient. A comprehensive ED assessment and evaluation of the patient, analysis of test results and completion of medical decision making process will be conducted by additional ED providers. PHYSICAL EXAMINATION: GENERAL: Well-appearing, well-nourished and in no acute distress. A&Ox4. Answers questions appropriately. Abdomen: Limited exam in triage, noted tenderness right upper quadrant. - Related Data Allergies/Adverse Reactions: shrimp Adverse Reaction (Verified 05/17/19 13:24) DIAL SOAP Allergy (Uncoded 05/17/19 13:24) Past Medical History - Social History Frequency of alcohol use: None Drug Abuse: None - Past Medical History Cardiac Medical History: Reports: Hx Hypertension - POST Denies: Hx Coronary Artery Disease, Hx Heart Attack Pulmonary Medical History: Reports: Hx Asthma Denies: Hx Bronchitis, Hx COPD, Hx Pneumonia Neurological Medical History: Reports: Hx Seizures - last 2016. Denies: Hx Cerebrovascular Accident Renal/ Medical History: Reports: Hx Kidney Stones. Denies: Hx Peritoneal Dialysis Musculoskeltal Medical History: Denies Hx Arthritis, Reports Hx Musculoskeletal Deformity Past Surgical History: Reports: Hx Section, Hx Open Heart Surgery - Coarctation repair, Hx Tubal Ligation - Immunizations Immunizations up to date: Yes Hx Diphtheria, Pertussis, Tetanus Vaccination: Yes Physical Exam - Vital signs Vitals: Temp Pulse Resp BP Pulse Ox 97.8 F 56 L 16 145/79 H 100 09/22/19 10:54 09/22/19 10:54 09/22/19 10:54 09/22/19 10:54 09/22/19 10:54 Course - Vital Signs Vital signs: Temp Pulse Resp BP Pulse Ox 97.8 F 56 L 16 145/79 H 100 09/22/19 10:54 09/22/19 10:54 09/22/19 10:54 09/22/19 10:54 09/22/19 10:54
[2019-09-22 11:55] LABS: ABSOLUTE LYMPHOCYTES (AUTO) 1.2 10^3/uL (0.5-4.7); ABSOLUTE MONOCYTES (AUTO) 0.5 10^3/uL (0.1-1.4); ABSOLUTE NEUT (AUTO) 8.8 10^3/uL (1.7-8.2); BASOPHILS % (AUTO) 0.3 % (0-2); EOSINOPHILS % (AUTO) 0.4 % (0-6); HEMATOCRIT 35.7 % (36.0-47.0); HEMOGLOBIN 11.6 g/dL (12.0-15.5); LYMPHOCYTES % (AUTO) 11.3 % (13-45); MEAN CORPUSCULAR HEMOGLOBIN 23.2 pg (27.0-33.4); MEAN CORPUSCULAR HGB CONC 32.4 g/dL (32.0-36.0); MEAN CORPUSCULAR VOLUME 72 fl (80-97); PLATELET COUNT 244 10^3/uL (150-450); RED BLOOD COUNT 4.99 10^6/uL (3.72-5.28); RED CELL DISTRIBUTION WIDTH 15.7 % (11.5-14.0); TOTAL CELLS COUNTED % (AUTO) 100 %; WHITE BLOOD COUNT 10.6 10^3/uL (4.0-10.5)
[2019-09-22 12:04] LABS: APPEARANCE,URINE SLIGHTLY-CLOUDY; BILIRUBIN,URINE NEGATIVE (NEGATIVE); GLUCOSE, URINE NEGATIVE (NEGATIVE); KETONES,URINE NEGATIVE (NEGATIVE); PROTEIN,URINE 100 mg/dL (NEGATIVE); URINE SPECIFIC GRAVITY 1.008; UROBILINOGEN,URINE NEGATIVE mg/dL (<2.0)
[2019-09-22 12:07] LABS: COLOR,URINE DARK YELLOW
[2019-09-22 12:12] LABS: ALBUMIN 4.4 g/dL (3.5-5.0); ALKALINE PHOSPHATASE 80 U/L (38-126); ANION GAP 6 (5-19); ASPARTATE AMINO TRANSFERASE 20 U/L (14-36); BILIRUBIN,TOTAL 0.6 mg/dL (0.2-1.3); BLOOD UREA NITROGEN 16 mg/dL (7-20); CALCIUM 9.2 mg/dL (8.4-10.2); CARBON DIOXIDE 29 mmol/L (22-30); CHLORIDE 107 mmol/L (98-107); GLUCOSE 92 mg/dL (75-110); POTASSIUM 3.3 mmol/L (3.6-5.0); TOTAL PROTEIN 7.1 g/dL (6.3-8.2)
--- NOTE | 2019-09-22 13:39 | RADIOLOGY REPORT (SQ) ---
EXAM DESCRIPTION: U/S ABDOMEN LIMITED W/O DOP COMPLETED DATE/TIME: 09/22/2019 1:19 pm REASON FOR STUDY: RUQ pain COMPARISON: None. TECHNIQUE: Dynamic and static grayscale images acquired of the abdomen and recorded on PACS. Additio nal selected color Doppler and spectral images recorded. LIMITATIONS: None. FINDINGS: PANCREAS: No masses. Visualized pancreatic duct normal caliber. LIVER: No masses. Echotexture normal. LIVER VASCULATURE: Normal directional flow of the main portal vein and hepatic veins. GALLBLADDER: 4 mm mucosal polyp versus adherent stone. Normal wall thickness. No pericholecystic flui d. ULTRASOUND-DETECTED OCHOA'S SIGN: Negative. INTRAHEPATIC DUCTS AND COMMON DUCT: CBD and intrahepatic ducts normal caliber. No filling defects. INFERIOR VENA CAVA: Normal flow. AORTA: No aneurysm. RIGHT KIDNEY: Normal size. Normal echogenicity. No solid or suspicious masses. No hydronephrosis. S mall calculi, the largest measuring 4 mm. PERITONEAL AND RIGHT PLEURAL SPACE: No ascites or effusions. OTHER: No other significant findings. IMPRESSION: 1. 4 MM MUCOSAL POLYP VERSUS ADHERENT STONE IN THE GALLBLADDER. 2. SMALL NONOBSTRUCTING CALCULI IN THE RIGHT KIDNEY. TECHNICAL DOCUMENTATION: JOB ID: [id number] [employer]- All Rights Reserved Reading location - IP/workstation name: [email or web address]
[2019-09-22] MEDS ORDERED: KETOROLAC TROMETHAMINE INJ/PF 30 MG/1 ML SDV IV ONE (14:00)
[2019-09-22] MEDS ORDERED: IPRATROPIUM/ALBUTEROL 0.5-2.5 MG/3 ML AMPUL NEB ONE (14:01)
[2019-09-22] MEDS ORDERED: POTASSIUM CHLORIDE 10 MEQ TABLET.ER PO ONE (14:01)
--- NOTE | 2019-09-22 14:03 | ER Document Report ---
ED GI/ - General Chief Complaint: Abdominal Pain Stated Complaint: ABDOMINAL PAIN Time Seen by Provider: 09/22/19 13:53 Primary Care Provider: [facility] [Provider Group] - Follow up as needed [facility] [Provider Group] - Follow up as needed Mode of Arrival: Ambulatory Information source: Patient Notes: Patient presents complaining of right side abdominal pain that started suddenly at 7:00 this morning. Patient states that the pain was very severe caused her to become nauseated and vomited 10 times. Patient states that he did break her out in a sweat at that time. Patient states that the pain radiates to the right lateral side into the the right lower abdomen. Patient denies any urinary symptoms. Patient denies any fever. TRAVEL OUTSIDE OF THE [place] IN LAST 30 DAYS: No - HPI Patient complains to provider of: Abdominal pain, Vomiting Onset: This morning Timing/Duration: Sudden Quality of pain: Pressure Pain Level: 4 Location: RUQ, RLQ, Right flank Vaginal bleeding (Compared to normal period): None Associated symptoms: Nausea, Vomiting. denies: Chills, Dysuria, Fever, Urinary hesitancy, Urinary frequency, Urinary retention, Urinary urgency Exacerbated by: Denies Relieved by: Denies Similar symptoms previously: No Recently seen / treated by doctor: No - Related Data Allergies/Adverse Reactions: shrimp Adverse Reaction (Verified 05/17/19 13:24) DIAL SOAP Allergy (Uncoded 05/17/19 13:24) Past Medical History - General Information source: Patient - Social History Smoking Status: Current Every Day Smoker Frequency of alcohol use: None Drug Abuse: None Occupation: None Lives with: Family Family History: Reviewed & Not Pertinent Patient has suicidal ideation: No Patient has homicidal ideation: No - Past Medical History Cardiac Medical History: Reports: Hx Hypertension - POST Pulmonary Medical History: Reports: Hx Asthma Neurological Medical History: Reports: Hx Seizures - last 2017 Renal/ Medical History: Reports: Hx Kidney Stones Musculoskeletal Medical History: Reports Hx Musculoskeletal Deformity Past Surgical History: Reports: Hx Section, Hx Open Heart Surgery - Coarctation repair, Hx Tubal Ligation - Immunizations Immunizations up to date: Yes Hx Diphtheria, Pertussis, Tetanus Vaccination: Yes Review of Systems - Review of Systems Constitutional: Diaphoresis. denies: Fever, Recent illness EENT: No symptoms reported Cardiovascular: No symptoms reported. denies: Chest pain Respiratory: No symptoms reported. denies: Cough, Short of breath, Sputum Gastrointestinal: Abdominal pain, Nausea, Vomiting Genitourinary: Flank pain. denies: Dysuria, Hematuria Female Genitourinary: No symptoms reported Musculoskeletal: No symptoms reported Skin: No symptoms reported Hematologic/Lymphatic: No symptoms reported Neurological/Psychological: No symptoms reported Physical Exam - Vital signs Vitals: Temp Pulse Resp BP Pulse Ox 97.8 F 56 L 16 145/79 H 100 09/22/19 10:54 09/22/19 10:54 09/22/19 10:54 09/22/19 10:54 09/22/19 10:54 - General General appearance: Appears well, Alert In distress: None - HEENT Head: Normocephalic, Atraumatic Eyes: Normal Conjunctiva: Normal Nasal: Normal Mouth/Lips: Normal Neck: Normal, Supple - Respiratory Respiratory status: No respiratory distress Chest status: Nontender Breath sounds: Nonproductive cough, Wheezing Chest palpation: Normal - Cardiovascular Rhythm: Regular Heart sounds: S1 appreciated, S2 appreciated - Abdominal Inspection: Normal Distension: No distension Bowel sounds: Normal Tenderness: Tender - Right upper, right lower quadrant tenderness. No: Guarding Organomegaly: No organomegaly - Back Back: CVA tenderness - Right - Extremities General upper extremity: Normal inspection, Normal strength General lower extremity: Normal inspection, Normal strength - Neurological Neuro grossly intact: Yes Cognition: Normal Clair Coma Scale Eye Opening: Spontaneous Clair Coma Scale Verbal: Oriented Clair Coma Scale Motor: Obeys Commands [place]co Coma Scale Total: 15 - Psychological Associated symptoms: Normal affect, Normal mood - Skin Skin Temperature: Warm Skin Moisture: Dry Skin Color: Normal Course - Re-evaluation Re-evalutation: 09/22/19 14:54 Reviewed patient's diagnostic test results. Patient with incidental 4 mm likely polyp versus adherent stone noted on gallbladder ultrasound. Patient with small distal ureteral stone noted on CT scan. No evidence of hydronephrosis. Patient does have mild leukocytosis without fever. Patient with normal renal function no elevation in BUN and creatinine at this time. Patient otherwise nontoxic in appearance and pain is manageable. Will refer to outpatient urology for further evaluation of ureteral stone. Patient advised of incidental ultrasound findings and need for follow-up with her primary doctor for further evaluation. 09/22/19 19:24 Patient called stating that she went to her pharmacy and her medications were not at the pharmacy. Patient advised that her prescriptions had gone to the [facility] pharmacy. Patient states that that pharmacy has since closed and that she wanted her prescription sent to the [email or web address]. Keren fitch's prescriptions were then E scribed to that pharmacy. Patient states she was not given the opportunity to update her pharmacy while here. - Vital Signs Vital signs: Temp Pulse Resp BP Pulse Ox 98.0 F 60 16 130/80 H 100 09/22/19 15:39 09/22/19 15:39 09/22/19 15:39 09/22/19 15:39 09/22/19 15:39 - Laboratory Result Diagrams: 09/22/19 11:30 09/22/19 11:30 Laboratory results interpreted by me: 09/22/19 09/22/19 09/22/19 11:30 11:30 11:30 WBC 10.6 H Hgb 11.6 L Hct 35.7 L MCV 72 L MCH 23.2 L RDW 15.7 H Lymph % (Auto) 11.3 L Absolute Neuts (auto) 8.8 H Seg Neutrophils % 83.0 H Potassium 3.3 L Urine Protein 100 H Urine Blood LARGE H Leukocyte Esterase Rfl TRACE H 09/22/19 14:54 Labs- Entire Visit 09/22/19 09/22/19 09/22/19 11:30 11:30 11:30 WBC 10.6 H RBC 4.99 Hgb 11.6 L Hct 35.7 L MCV 72 L MCH 23.2 L MCHC 32.4 RDW 15.7 H Plt Count 244 Lymph % (Auto) 11.3 L [place] % (Auto) 5.0 Eos % (Auto) 0.4 Baso % (Auto) 0.3 Absolute Neuts (auto) 8.8 H Absolute Lymphs (auto) 1.2 Absolute Monos (auto) 0.5 Absolute Eos (auto) 0.0 Absolute Basos (auto) 0.0 Seg Neutrophils % 83.0 H Sodium 141.8 Potassium 3.3 L Chloride 107 Carbon Dioxide 29 Anion Gap 6 BUN 16 Creatinine 0.77 Est GFR ( Amer) > 60 Est GFR (MDRD) Non-Af > 60 Glucose 92 Calcium 9.2 Total Bilirubin 0.6 Direct Bilirubin 0.0 Neonat Total Bilirubin Not Reportable Neonat Direct Bilirubin Not Reportable Neonat Indirect Bili Not Reportable AST 20 ALT 7 Alkaline Phosphatase 80 Total Protein 7.1 Albumin 4.4 Lipase 54.8 Urine Color DARK YELLOW Urine Appearance SLIGHTLY-CLOUDY Urine pH 7.0 Ur Specific [place] 1.008 Urine Protein 100 H Urine Glucose (UA) NEGATIVE Urine Ketones NEGATIVE Urine Blood LARGE H Urine Nitrite (Reflex) NEGATIVE Urine Bilirubin NEGATIVE Urine Urobilinogen NEGATIVE Leukocyte Esterase Rfl TRACE H Urine RBC (Auto) >182 Urine Bacteria (Auto) 1+ Urine WBC (Reflex) 8 Squamous Epi Cells Auto 7 Urine Mucus (Auto) RARE Urine Ascorbic Acid NEGATIVE Urine HCG, Qual NEGATIVE - Diagnostic Test Radiology reviewed: Reports reviewed Discharge - Discharge Clinical Impression: Hypokalemia, Ureteral stone, Wheezing Abdominal pain Qualifiers: Abdominal location: unspecified location Qualified Code(s): R10.9 - Unspecified abdominal pain Hematuria Qualifiers: Hematuria type: unspecified type Qualified Code(s): R31.9 - Hematuria, unspeci fied Nausea and vomiting Qualifiers: Vomiting type: unspecified Vomiting Intractability: non-intractable Qualified Code(s): R11.2 - Nausea with vomiting, unspecified Asthma Qualifiers: Asthma severity: unspecified severity Asthma persistence: unspecified Asthma complication type: unspecified Qualified Code(s): J45.909 - Unspecified asthma, uncomplicated Condition: Stable Disposition: HOME, SELF-CARE Instructions: Asthma ([facility]), Inhaled Bronchodilators ([facility]), Steroid Medication Additional Instructions: Return immediately for any new or worsening symptoms: Fever, vomiting, worsening pain or any concerning new symptoms Followup with your primary care provider, call tomorrow to make a followup appointment Follow-up with a urologist for further evaluation, call tomorrow to make an appointment KIDNEY STONE: You are passing or have passed a kidney stone. These stones are usually due to increased calcium or uric acid concentrations in your urine. Stones within the kidney itself are not painful. The pain occurs as the stone leaves the kidney to pass down the long tube, called the ureter, leading to the bladder. If the stone is small, it will usually pass by itself. Most patients can pass the stone at home. You will usually receive medications for pain, nausea or vomiting, and sometimes a medication to assist in passing the kidney stone. However, if the pain is very severe or if vomiting prevents you from taking oral pain medications, you may need to return for further treatment. Drink three or four quarts of fluids per day. You will be given pain medication (if needed) and urine strainers. Strain all your urine to see if the stone passes. If your doctor has asked you to bring the stone in for analysis, return with the stone once it has passed. Return if pain or vomiting become severe, if you develop a high fever, if you are unable to pass your urine, or if other unusual symptoms occur. TORADOL INJECTION: You have been given an injection of ketorolac tromethamine (Toradol). This is an excellent, safe drug for pain control. It also has potent antiinflammatory action. You should have significant pain relief within about one hour. Toradol is not addicting and is non-sedating. It does not interfere with driving or work. Call or return if you develop itching, hives, shortness of breath, or rash. ANTINAUSEA MEDICATION: You have been given a medication to suppress nausea and vomiting. This type of medication can be given as a shot, pill, or suppository. It will usually last for many hours. Pills and shots usually last six to eight hours, suppositories last about 12 hours. For the typical illness, only one or two doses of the medication may be necessary. Mild lightheadedness may occur. This type of medicine can cause drowsiness. Do not drive or operate dangerous machinery while under its influence. Do not mix with alcohol. See your doctor at once if you have muscle spasms or tightness, or uncontrollable motions (particularly of the neck, mouth, or jaw). Persistent vomiting or severe lightheadedness should also be evaluated by the physician. ORAL NARCOTIC MEDICATION: You have been given a prescription for pain control. This medication is a narcotic. It's best taken with food, as nausea can result if taken on an empty stomach. Don't operate machinery or drive within six hours of taking this medication. Do not combine this medicine with alcohol, or with any medication which can cause sedation (such as cold tablets or sleeping pills) unless you get permission from the physician. Narcotics tend to cause constipation. If possible, drink plenty of fluids and eat a diet high in fiber and fruits. Please be aware that prescription narcotics also have the potential for abuse. People become addicted to these medications because of the general sense of wellbeing that they induce. This feeling along with a significant reduction in tension, anxiety, and aggression provides a stimulating seductive quality to these drugs. Once your pain is under control, we encourage you to discard your unused narcotics. FLOMAX (tamsulosin): Flomax is a medicine that shrinks the prostate gland. It helps relieve symptoms of benign prostatic hypertrophy, such as frequent urination, weak stream, and inadequate emptying. It has been shown to dilate the ureter (tube leading from the kidney to the bladder) and help in passing kidney stones Flomax usually causes no side effects. You may notice slight tiredness and dizziness for a few days. Some patients develop nasal congestion. Rarely, impotence can occur. If the symptoms are bothersome and don't improve with continued use, call your doctor. Contact your doctor or return if you have fainting spells, severe weakness or dizziness, shortness of breath, or rash. FOLLOW-UP CARE: If you have been referred to a physician for follow-up care, call the physicians office for an appointment as you were instructed or within the next two days. If you experience worsening or a significant change in your symptoms, notify the physician immediately or return to the Emergency Department at any time for re-evaluation. Prescriptions: Prednisone [Deltasone 10 mg Tablet] 10 mg PO ASDIR #21 tablet Tamsulosin HCl [Flomax 0.4 mg Cap.sr] 0.4 mg PO DAILY #7 cap.sr.24h Hydrocodone/Acetaminophen [Velva 5-325 mg Tablet] 1 tab PO Q6 PRN #15 tablet PRN Reason: Inhaler,Assist Device,Accesory [Optichamber] 1 each MC Q4 PRN #1 each PRN Reason: Albuterol Sulfate [Proair Hfa Inhalation Aerosol 8.5 gm Mdi] 2 puff IH Q4 PRN #1 mdi PRN Reason: Ondansetron [Zofran Odt 4 mg Tablet] 1 tab PO Q6H #15 tab.rapdis Referrals: [facility] [Provider Group] - Follow up as needed [facility] [Provider Group] - Follow up as needed
--- NOTE | 2019-09-22 14:30 | RADIOLOGY REPORT (SQ) ---
EXAM DESCRIPTION: CT ABD/PELVIS NO ORAL OR IV COMPLETED DATE/TIME: 09/22/2019 2:12 pm REASON FOR STUDY: R flank, r side abd pain, hematuria COMPARISON: 05/08/2019. TECHNIQUE: CT scan of the abdomen and pelvis performed without intravenous or oral contrast. Images reviewed with lung, soft tissue, and bone windows. Reconstructed coronal and sagittal MPR images revi ewed. All images stored on PACS. All CT scanners at this facility use dose modulation, iterative reconstruction, and/or weight based d osing when appropriate to reduce radiation dose to as low as reasonably achievable (ALARA). [facility]: Dose Right [facility]: CareDose [facility]: Dose Right [facility]: Teradose 4D [facility]: Smart REM [facility] RADIATION DOSE: CT Rad equipment meets quality standard of care and radiation dose reduction techniq ues were employed. CTDIvol: 5.2 mGy. DLP: 249 mGy-cm.mGy. LIMITATIONS: None. FINDINGS: LOWER CHEST: No significant findings. No nodules or infiltrates. NON-CONTRASTED LIVER, SPLEEN, ADRENALS: Evaluation limited by lack of IV contrast. No identified sign ificant masses. PANCREAS: No masses. No peripancreatic inflammatory changes. GALLBLADDER: No identified stones by CT criteria. No inflammatory changes to suggest cholecystitis. RIGHT KIDNEY AND URETER: No suspicious masses. Assessment limited by lack of IV contrast. Small ale yceal calculi. 2 mm calculus in the pelvis on the right side of the uterus (axial series 3, image 61 ). Probably in the distal ureter although difficult to visualize. No hydronephrosis or hydroureter . LEFT KIDNEY AND URETER: No suspicious masses. Assessment limited by lack of IV contrast. Small christopher ceal calculi. No hydronephrosis or hydroureter. AORTA AND RETROPERITONEUM: No aneurysm. No retroperitoneal masses or adenopathy. BOWEL AND PERITONEAL CAVITY: No obvious masses or inflammatory changes. No free fluid. APPENDIX: Normal. PELVIS, BLADDER, AND ABDOMINAL WALL:No abnormal masses. No free fluid. Bladder normal. BONES: No significant findings. OTHER: No other significant finding. IMPRESSION: 1. SMALL NONOBSTRUCTING CALYCEAL CALCULI IN BOTH KIDNEYS. 2 MM CALCULUS IN THE PELVIS, PROBABLY IN T HE DISTAL RIGHT URETER. NO HYDRONEPHROSIS OR HYDROURETER 2. NO OTHER SIGNIFICANT OR ACUTE PROCESS IN THE ABDOMEN OR PELVIS. COMMENT: Quality ID # [id number]: Final reports with documentation of one or more dose reduction techniques (e.g., Automated exposure control, adjustment of the mA and/or kV according to patient size, use of iterative reconstruction technique) TECHNICAL DOCUMENTATION: JOB ID: [id number] 2010 [employer]- All Rights Reserved Reading location - IP/workstation name: [facility]
[2019-09-22] MEDS ORDERED: TAMSULOSIN HCL 0.4 MG CAP.SR.24H PO ONE (14:54)
[2019-09-22 15:40] VITALS: BP 130/80
== END 2019-09-22 15:41 | disposition home or self-care (01) ==
LOC: ER 10:36
DX: N20.1 Calculus of ureter (principal); R31.9 Hematuria, unspecified; E87.6 Hypokalemia; J45.909 Unspecified asthma, uncomplicated; R11.2 Nausea with vomiting, unspecified; D72.829 Elevated white blood cell count, unspecified; R10.9 Unspecified abdominal pain; R10.11 Right upper quadrant pain; R10.31 Right lower quadrant pain; R10.811 Right upper quadrant abdominal tenderness; R10.813 Right lower quadrant abdominal tenderness; R05 Cough; R61 Generalized hyperhidrosis; F17.200 Nicotine dependence, unspecified, uncomplicated; Z88.3 Allergy status to other anti-infective agents
CPT/HCPCS: 36415; 74176; 76705; 80053; 81001; 81025; 83690; 85025; 94640; 96374; 99284; J1885; J7620; S0119

== ENCOUNTER 2020-06-19 18:29 | Emergency (ER) | payer MEDICAID ==
--- NOTE | 2020-06-19 19:55 | ER Document Report ---
ED Medical Screen (RME) - General Chief Complaint: Chest Pain Stated Complaint: CHEST PAIN Time Seen by Provider: 06/19/20 19:52 TRAVEL OUTSIDE OF THE [place] IN LAST 30 DAYS: No - HPI Notes: 06/19/20 19:54 39-year-old female with a history of an VT at 18-years old, asthma, epilepsy presents to the emergency room today for complaints of substernal chest pain that started yesterday morning and radiates through to her back. She states that it is progressed to the neck and shooting down her right upper quadrant down to her right lower quadrant, states she sometimes has some tingling in her feet since yesterday morning. Patient denies any shortness of breath, nausea, vomiting, diarrhea, lower back pain. She is a half a pack a day smoker for the last 20 years. G7, P6. Last menstrual cycle was 3 days ago. Reports chest pain has been constant. Has not tried any [id number] medications. I have greeted and performed a rapid initial assessment of this patient. A comprehensive ED assessment and evaluation of the patient, analysis of test results and completion of the medical decision making process will be conducted by additional ED providers. PHYSICAL EXAMINATION: GENERAL: Well-appearing, well-nourished and in no acute distress. HEAD: Atraumatic, normocephalic. EYES: Pupils equal round extraocular movements intact, conjunctiva are normal. NECK: Normal range of motion CV: s1, s2 regular LUNGS: No respiratory distress Musculoskeletal: Normal range of motion NEUROLOGICAL: Normal speech, normal gait. SKIN: Warm, Dry, normal turgor, no rashes or lesions noted. - Related Data Allergies/Adverse Reactions: shrimp Adverse Reaction (Verified 05/17/19 13:24) DIAL SOAP Allergy (Uncoded 05/17/19 13:24) Past Medical History - Past Medical History Cardiac Medical History: Reports: Hx Hypertension - POST Denies: Hx Coronary Artery Disease, Hx Heart Attack Pulmonary Medical History: Reports: Hx Asthma Denies: Hx Bronchitis, Hx COPD, Hx Pneumonia Neurological Medical History: Reports: Hx Seizures - last 2016. Denies: Hx Cerebrovascular Accident Renal/ Medical History: Reports: Hx Kidney Stones. Denies: Hx Peritoneal Dialysis Musculoskeltal Medical History: Denies Hx Arthritis, Reports Hx Musculoskeletal Deformity Past Surgical History: Reports: Hx Section, Hx Open Heart Surgery - Coarctation repair, Hx Tubal Ligation - Immunizations Immunizations up to date: Yes Hx Diphtheria, Pertussis, Tetanus Vaccination: Yes Physical Exam - Vital signs Vitals: Temp Pulse Resp BP Pulse Ox 98.1 F 65 16 172/101 H 100 06/19/20 18:37 06/19/20 18:37 06/19/20 18:37 06/19/20 18:37 06/19/20 18:37 Course - Vital Signs Vital signs: Temp Pulse Resp BP Pulse Ox 98.1 F 65 16 172/101 H 100 06/19/20 18:37 06/19/20 18:37 06/19/20 18:37 06/19/20 18:37 06/19/20 18:37
--- NOTE | 2020-06-19 20:40 | RADIOLOGY REPORT (SQ) ---
EXAM DESCRIPTION: XR CHEST 1 VIEW COMPLETED DATE/TME: 06/19/2020 20:20 CLINICAL HISTORY: 39 years, Female, sob COMPARISON: February 16, 2019 NUMBER OF VIEWS: 1 TECHNIQUE: Single PA view of the chest was obtained at 8:16 PM. LIMITATIONS: None. FINDINGS: The heart size is within normal limits. There is mild peribronchial thickening. There is no airspace consolidation. There is no evidence of pleural effusion or pneumothorax. No definite acute bony abnormality is seen. IMPRESSION: Mild peribronchial thickening, suggesting bronchitis. No airspace consolidation is seen. Clinical correlation is recommended. copyright 2010 [employer]- All Rights Reserved
--- NOTE | 2020-06-19 21:28 | RADIOLOGY REPORT (SQ) ---
EXAM DESCRIPTION: U/S ABDOMEN LIMITED W/O DOP CLINICAL HISTORY: 39 years Female; RUQ, RLQ abd pain x 2d TECHNIQUE: Abdominal ultrasound was performed. COMPARISON: CT scan of the abdomen and pelvis without contrast 09/22/2019 FINDINGS: Pancreas: The pancreas is unremarkable. Liver: The liver measures 13.9 cm. Echogenicity is normal. Portal vein is patent with hepatopedal flow. Hepatic veins are patent.. Gallbladder: normal with no gallstones or sonographic evidence for acute cholecystitis. No sonographic Castañeda's. Common bile duct: 3.0 mm. Right kidney: The kidney measures 10.6 x 3 point a by 4.5 cm. Normal blood flow.. No hydronephrosis. Aorta:Visualized portions are within normal limits. IVC: Visualized portions are within normal limits. Ascites: No free fluid. IMPRESSION: Unremarkable right upper quadrant ultrasound. No acute process.
[2020-06-19 23:31] LABS: ABSOLUTE EOSINOPHILS # (AUTO) 0.1 10^3/uL (0.0-0.6); ABSOLUTE LYMPHOCYTES (AUTO) 2.1 10^3/uL (0.5-4.7); ABSOLUTE MONOCYTES (AUTO) 0.5 10^3/uL (0.1-1.4); ABSOLUTE NEUT (AUTO) 4.2 10^3/uL (1.7-8.2); BASOPHILS % (AUTO) 0.4 % (0-2); EOSINOPHILS % (AUTO) 1.2 % (0-6); HEMATOCRIT 32.7 % (36.0-47.0); HEMOGLOBIN 10.6 g/dL (12.0-15.5); LYMPHOCYTES % (AUTO) 30.3 % (13-45); MEAN CORPUSCULAR HEMOGLOBIN 23.9 pg (27.0-33.4); MEAN CORPUSCULAR HGB CONC 32.4 g/dL (32.0-36.0); MEAN CORPUSCULAR VOLUME 74 fl (80-97); MONOCYTES % (AUTO) 7.8 % (3-13); PLATELET COUNT 261 10^3/uL (150-450); RED BLOOD COUNT 4.44 10^6/uL (3.72-5.28); RED CELL DISTRIBUTION WIDTH 15.5 % (11.5-14.0); SEGMENTED NEUTROPHILS % (AUTO) 60.3 % (42-78); TOTAL CELLS COUNTED % (AUTO) 100 %; WHITE BLOOD COUNT 6.9 10^3/uL (4.0-10.5)
[2020-06-19 23:47] LABS: ALBUMIN 4.5 g/dL (3.5-5.0); ALKALINE PHOSPHATASE 73 U/L (38-126); ANION GAP 6 (5-19); ASPARTATE AMINO TRANSFERASE 20 U/L (14-36); BILIRUBIN,TOTAL 0.6 mg/dL (0.2-1.3); BLOOD UREA NITROGEN 17 mg/dL (7-20); CALCIUM 9.3 mg/dL (8.4-10.2); CARBON DIOXIDE 29 mmol/L (22-30); CHLORIDE 104 mmol/L (98-107); CREATINE KINASE 72 U/L (30-135); GLUCOSE 124 mg/dL (75-110); POTASSIUM 3.1 mmol/L (3.6-5.0); TOTAL PROTEIN 7.3 g/dL (6.3-8.2)
[2020-06-19 23:57] LABS: CREATINE KINASE MB 0.34 ng/mL (<4.55)
[2020-06-19 23:58] LABS: TROPONIN I < 0.012 ng/mL
[2020-06-20] MEDS ORDERED: HYDROCODONE/ACETAMINOPHEN 5-325 MG (6 TAB/ER DISP) PO PRN (01:56)
[2020-06-20] MEDS ORDERED: SUCRALFATE 1 GM TABLET PO ONE (01:56)
[2020-06-20] MEDS ORDERED: FAMOTIDINE 20 MG TABLET PO ONE (01:56)
--- NOTE | 2020-06-20 01:59 | ER Document Report ---
ED General - General Chief Complaint: Chest Pain Stated Complaint: CHEST PAIN Time Seen by Provider: 06/19/20 19:52 Notes: Patient is a 39-year-old female that comes emergency department for chief complaint of pain for the past 2 days that seems to start in her upper abdomen slightly worse on the right and will radiate up into her chest. She states symptoms are worse with food and she has been eating less because of it. She denies vomiting, difficulty breathing, fever/chills. She denies dark or bloody stools. She denies abdominal surgeries. She smokes, denies alcohol, denies recreational drugs. 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 TRAVEL OUTSIDE OF THE [place] IN LAST 30 DAYS: No - Related Data Allergies/Adverse Reactions: shrimp Adverse Reaction (Verified 05/17/19 13:24) DIAL SOAP Allergy (Uncoded 05/17/19 13:24) Past Medical History - General Information source: Patient - Social History Smoking Status: Current Every Day Smoker Smoking Education Provided: Yes - <3 min Frequency of alcohol use: None Drug Abuse: None Lives with: Family Family History: Reviewed & Not Pertinent - Past Medical History Cardiac Medical History: Reports: Hx Hypertension - POST Denies: Hx Coronary Artery Disease, Hx Heart Attack Pulmonary Medical History: Reports: Hx Asthma Denies: Hx Bronchitis, Hx COPD, Hx Pneumonia Neurological Medical History: Reports: Hx Seizures - last 2016. Denies: Hx Cerebrovascular Accident Renal/ Medical History: Reports: Hx Kidney Stones. Denies: Hx Peritoneal Dialysis Musculoskeletal Medical History: Denies Hx Arthritis, Reports Hx Musculoskeletal Deformity Past Surgical History: Reports: Hx Section, Hx Open Heart Surgery - Coarctation repair, Hx Tubal Ligation - Immunizations Immunizations up to date: Yes Hx Diphtheria, Pertussis, Tetanus Vaccination: Yes Review of Systems - Review of Systems Constitutional: No symptoms reported EENT: No symptoms reported Cardiovascular: See HPI Respiratory: No symptoms reported Gastrointestinal: See HPI Genitourinary: No symptoms reported Female Genitourinary: No symptoms reported Musculoskeletal: No symptoms reported Skin: No symptoms reported Hematologic/Lymphatic: No symptoms reported Neurological/Psychological: No symptoms reported Physical Exam - Vital signs Vitals: Temp Pulse Resp BP Pulse Ox 98.1 F 65 16 172/101 H 100 06/19/20 18:37 06/19/20 18:37 06/19/20 18:37 06/19/20 18:37 06/19/20 18:37 - Notes Notes: GENERAL: Alert, interacts well. No acute distress. HEAD: Normocephalic, atraumatic. EYES: Pupils equal, round, and reactive to light. Extraocular movements intact. ENT: Oral mucosa moist, tongue midline. Oropharynx unremarkable. Airway patent. LUNGS: Clear to auscultation bilaterally, no wheezes, rales, or rhonchi. No respiratory distress. Non-tender chest wall. HEART: Regular rate and rhythm. No murmur ABDOMEN: Generalized tenderness of the upper abdomen especially in the epigastric area but no guarding. Negative Castañeda sign. Lower abdomen unremarkable. Bowel sounds present throughout. EXTREMITIES: Moves all 4 extremities spontaneously. No edema, normal radial and dorsalis pedis pulses bilaterally. No cyanosis. BACK: no cervical, thoracic, lumbar midline tenderness. No saddle anesthesia, normal distal neurovascular exam. Moves all extremities in full range of motion. NEUROLOGICAL: Alert and oriented x3. Normal speech. Cranial nerves II through XII grossly intact. Strength 5/5 in all extremities. PSYCH: Normal affect, normal mood. SKIN: Warm, dry, normal turgor. No rashes or lesions noted. Course - Re-evaluation Re-evalutation: On my exam patient has generalized tenderness in the upper abdomen especially in the epigastric area. This is reproducible. Patient also having symptoms worsened by eating. Based on her age, risk factors, and specific complaints very low suspicion that this is cardiac. EKG, troponin, chest x-ray reviewed and unremarkable. Mild peribronchial thickening on the chest x-ray per the read but patient has no respiratory symptoms, clear lungs, and she is a chronic smoker. I did discuss smoking cessation. Clinically I do not suspect she has bronchitis. Lipase unremarkable. CBC and chemistry unremarkable except for chronic anemia and slightly low potassium.. negative. Ultrasound reviewed and shows no acute pathology. Overall I suspect gastritis/inflammation of the upper gastrointestinal tract. Patient is able to tolerate p.o. I discussed details with patient at length, discussed recommendations, follow-up, return cautions. Patient states appreciation and agreement. Stable and well- appearing at time of discharge. - Vital Signs Vital signs: Temp Pulse Resp BP Pulse Ox 98.0 F 53 L 20 148/92 H 99 06/20/20 02:02 06/20/20 02:02 06/20/20 02:02 06/20/20 02:02 06/20/20 02:02 - Laboratory Result Diagrams: 06/19/20 23:12 06/19/20 23:12 Laboratory results interpreted by me: 06/19/20 06/19/20 23:12 23:12 Hgb 10.6 L Hct 32.7 L MCV 74 L MCH 23.9 L RDW 15.5 H Potassium 3.1 L Glucose 124 H - EKG Interpretation by Me Additional EKG results interpreted by me: EKG shows sinus bradycardia at a rate of 53, normal axis, no T wave inversions or ST segment changes in consecutive leads, QTC 406 Discharge - Discharge Clinical Impression: Upper abdominal pain Chest pain Qualifiers: Chest pain type: unspecified Qualified Code(s): R07.9 - Chest pain, unspecified Disposition: HOME, SELF-CARE Instructions: Oral Narcotic Medication ([facility]) Additional Instructions: I suspect your symptoms are from gastritis and inflammation of the upper gastrointestinal tract. Take Zofran for nausea, take Carafate and Pepcid as prescribed to help treat this, you can take additional Rolaids, Tums, Maalox, etc. if needed. You can take Tylenol for pain. Avoid NSAIDs, alcohol, smoking, caffeine, spicy food. Start with clear fluids, progress to bland diet. Your potassium was also low today, increase the potassium in your diet. Follow-up with primary care for additional evaluation and treatment including possible H. pylori testing. Return if you worsen including uncontrolled vomiting, vomiting blood, black stools, severe pain, fever of 100.4 or greater, or any other concerning or worsening symptoms. Prescriptions: Sucralfate [Carafate 1 gm Tablet] 1 gm PO QID #20 tablet Famotidine [Pepcid 20 mg Tablet] 20 mg PO BID #20 tablet Ondansetron [Zofran Odt 4 mg Tablet] 1 - 2 tab PO Q4H PRN #15 tab.rapdis PRN Reason: For Nausea/Vomiting Forms: Smoking Cessation Education, Return to Work
[2020-06-20 02:13] VITALS: BP 148/92
--- NOTE | 2020-06-20 18:05 | EKG REPORT ---
SEVERITY:- ABNORMAL ECG - SINUS RHYTHM PROBABLE LEFT ATRIAL ABNORMALITY LEFT VENTRICULAR HYPERTROPHY : Confirmed by: Nubia Gramajo 20-Jun-2020 18:05:16
== END 2020-06-20 03:01 | disposition home or self-care (01) ==
LOC: ER 18:29
DX: R10.11 Right upper quadrant pain (principal); R07.9 Chest pain, unspecified; R10.31 Right lower quadrant pain; R10.816 Epigastric abdominal tenderness; R00.1 Bradycardia, unspecified; D64.9 Anemia, unspecified; J45.909 Unspecified asthma, uncomplicated; I10 Essential (primary) hypertension; F17.200 Nicotine dependence, unspecified, uncomplicated; Z87.442 Personal history of urinary calculi; Z98.51 Tubal ligation status; Z91.048 Other nonmedicinal substance allergy status
CPT/HCPCS: 93005; 99285; 36415; 82553; 82550; 83690; 85025; 80053; 84484; 71045; 76705; 93010; J3490 ×2